=== PATIENT | male | born 1955 | race Caucasian/White ===

== ENCOUNTER 2017-02-09 12:04 | Inpatient (IN) | payer MEDICAID ==
[2017-02-09 12:41] VITALS: BMI 35.9
--- NOTE | 2017-02-09 13:22 | C.PDOC ---
History Of Present Illness 61 year old male with a Hx of asthma who presents to the ER with a complaint of SOB and cough with clear sputum for the past 5 days. Patient states it feels like prior asthma exacerbation; he reports having nebulizer treatments at home and notes he is not on steroid treatments. Denies fever, chills, or chest pain. Time Seen by Provider: 02/09/17 13:01 Chief Complaint (Nursing): Shortness Of Breath Associated Symptoms: Sweating, Productive Cough. denies: Fever, Chest Pain Recent travel outside of the [place]: No Past Medical History Reviewed: Historical Data, Nursing Documentation, Vital Signs Vital Signs: Last Vital Signs Temp 97.6 F 02/10/17 17:09 Pulse 100 H 02/10/17 17:09 Resp 20 02/10/17 17:09 BP 111/71 02/10/17 17:09 Pulse Ox 93 L 02/10/17 17:09 - Medical History PMH: Anxiety, Asthma, Benign Prostatic Hyperplasia, Bipolar Disorder, COPD, Depression, Diabetes, HTN, Hyperlipidemia, Schizophrenia Surgical History: [place] [facility] ASSISTANCE WITH RESPIRATORY VENTILATION, 24-96 HRS, CPAP (08/18/15) INSERTION OF ENDOTRACHEAL AIRWAY INTO TRACHEA, VIA OPENING (08/18/15) RESPIRATORY VENTILATION, 24-96 CONSECUTIVE HOURS (08/18/15) Family History: States: Unknown Family Hx - Social History Hx Tobacco Use: Yes Hx Alcohol Use: No Hx Substance Use: No - Immunization History Hx Tetanus Toxoid Vaccination: No Hx Influenza Vaccination: Yes Hx Pneumococcal Vaccination: No Review Of Systems Constitutional: Positive for: Sweats. Negative for: Fever Cardiovascular: Negative for: Chest Pain, Palpitations Respiratory: Positive for: Cough, Shortness of Breath, Sputum Gastrointestinal: Negative for: Nausea, Vomiting, Abdominal Pain Genitourinary: Negative for: Dysuria Physical Exam - Physical Exam Appears: Non-toxic Skin: Normal Color, Warm, Dry Head: Atraumatic, Normacephalic Oral Mucosa: Moist Neck: Normal, Supple Chest: Symmetrical, No Tenderness Cardiovascular: Rhythm Regular, No Murmur Respiratory: No Rales, No Rhonchi, Wheezing (Diffuse, Bilaterally) Gastrointestinal/Abdominal: Soft, No Tenderness Neurological/Psych: Oriented x3, Normal Speech, Normal Cognition ED Course And Treatment - Laboratory Results Result Diagrams: 02/10/17 07:27 02/10/17 07:27 O2 Sat by Pulse Oximetry: 91 (Room air) Medical Decision Making Medical Decision Making: Blood work, EKG, and CXR ordered. Duoneb and solumedrol administered. EKG: NSR 86 bpm Disposition - Disposition Disposition: HOSPITALIZED Disposition Time: 15:49 Condition: STABLE - Clinical Impression Clinical Impression: COPD with acute lower respiratory infection - Scribe Statement The provider has reviewed the documentation as recorded by the Scribmira De Leon All medical record entries made by the Ricardoibmira were at my direction and personally dictated by me. I have reviewed the chart and agree that the record accurately reflects my personal performance of the history, physical exam, medical decision making, and the department course for this patient. I have also personally directed, reviewed, and agree with the discharge instructions and disposition.
[2017-02-09] MEDS ORDERED: Albuterol-Ipratrop 3 mg / 0.5 (3 ml) UD IH SCH (13:30)
[2017-02-09] MEDS ORDERED: Albuterol-Ipratrop 3 mg / 0.5 (3 ml) UD ONE ×2 (13:44→15:32)
[2017-02-09 13:56] LABS: BASO # 0.1 K/uL (0.0-0.2); BASO % 0.5 % (0.0-2.0); EOS # 0.3 K/uL (0.0-0.7); EOS % 1.7 % (0.0-4.0); LYMPH # 0.8 K/uL (1.0-4.3); LYMPH % 4.6 % (20.0-40.0); MEAN CELL VOLUME 78.5 fL (80.0-94.0); MEAN CORPUSCULAR HEMOGLOBIN 25.9 pg (27.0-31.0); MEAN PLATELET VOLUME 8.1 fL (7.2-11.7); MONO # 0.6 K/uL (0.0-0.8); MONO % 3.6 % (0.0-10.0); NEUT # 15.7 K/uL (1.8-7.0); NEUT % 89.6 % (50.0-75.0); PLATELET COUNT 304 K/uL (130-400); RBC 5.42 Mil/uL (4.40-5.90); RED CELL DISTRIBUTION WIDTH 13.7 % (11.5-14.5); WHITE BLOOD COUNT 17.5 K/uL (4.8-10.8)
[2017-02-09 14:17] LABS: ALBUMIN 3.7 g/dL (3.5-5.0)
[2017-02-09 14:19] LABS: GFR AFRICAN-AMERICAN > 60; GFR NON-AFRICAN AMERICAN > 60
[2017-02-09 14:20] LABS: ALT/SGPT 47 U/L (21-72); AST/SGOT 46 U/L (17-59); BLOOD UREA NITROGEN 8 mg/dL (9-20); CALCIUM 8.8 mg/dl (8.6-10.4)
[2017-02-09 14:29] LABS: B-TYPE NATRIURETIC PEPTIDE 65.8 pg/mL (0-900)
[2017-02-09] MEDS ORDERED: Moxifloxacin IV 400mg/250ml NS 400 MG/250 ML BAG IVPB ONE ×2 (14:29→14:56)
--- NOTE | 2017-02-09 14:29 | RAD ---
HISTORY: cough sob COMPARISON: 08/06/2016 FINDINGS: LUNGS: No focal consolidation. Peribronchial thickening and patchy bilateral opacities. Nonspecific. Consider infectious etiology. . PLEURA: Calcified pleural plaque at left lateral lung base unchanged from prior. CARDIOVASCULAR: Normal. OSSEOUS STRUCTURES: No significant abnormalities. VISUALIZED UPPER ABDOMEN: Normal. OTHER FINDINGS: None. IMPRESSION: Peribronchial thickening and patchy bilateral pulmonary opacities common nonspecific. This may reflect an infectious etiology.
[2017-02-09 14:50] LABS: EOSINOPHIL 1 % (0-4); LYMPHOCYTE 5 % (20-40); MONOCYTE 5 % (0-10); NEUTROPHIL 89 % (50-75); PLATELET ESTIMATE NORMAL (NORMAL); TOTAL CELLS COUNTED 100
[2017-02-09 14:50] LABS: ABG ALLEN TEST PO; ARTERIAL BLOOD GAS HCO3 25.8 mmol/L (21-28); ARTERIAL BLOOD GAS O2 SAT 92.2 % (95-98); ARTERIAL BLOOD GAS PCO2 39 mm/Hg (35-45); ARTERIAL BLOOD GAS PH 7.43 (7.35-7.45); ARTERIAL BLOOD GAS PO2 52 mm/Hg (80-100); ARTERIAL BLOOD GAS TCO2 27.1 mmol/L (22-28)
[2017-02-09 14:54] LABS: URINE BILIRUBIN NEGATIVE (NEGATIVE); URINE BLOOD NEGATIVE (NEGATIVE); URINE CLARITY Clear (Clear); URINE COLOR Yellow (YELLOW); URINE GLUCOSE (UA) NORMAL (Normal); URINE LEUKOCYTE ESTERASE NEG Leu/uL (Negative); URINE NITRATE NEGATIVE (NEGATIVE); URINE PROTEIN NEGATIVE (NEGATIVE); URINE UROBILINOGEN NORMAL mg/dL (0.2-1.0)
[2017-02-09] MEDS ORDERED: Albuterol-Ipratrop 3 mg / 0.5 (3 ml) UD INH PRN (18:15)
--- NOTE | 2017-02-09 18:28 | CP.PCM.HP ---
<Amanda Meade - Last Filed: 02/09/17 18:19> History of Present Illness - History of Present Illness History of Present Illness: CC: SOB 61 year old male with past medical history of asthma, DM, HTN, schizophrenia presents to hospital for cough and shortness of breath ongoing for about 5 days. Patient states that he has productive cough with whitish sputum for 5 days. This morning, patient went to PMD, Dr. Eyal Molina's office and was given Medrol and told to go to ED. Patient states he has been using his inhalers at home without much relief. Patient denies having any fevers, chills. He does c/ o of B/L chest pain worse with coughing ongoing for about 4 days. Patient was found to have WBC count of 17.5 in ED. However, patient was afebrile and had stable VS. Patient was admitted to hospital 6 months ago for similar symptoms. At that time, patient had CT chest which showed patchy nonspecific ground glass opacities. At this time, patient is not c/o SOB, chest pain, abd pain, N/ V. 12 point ROS are negative except for the above mentioned. PMHx: stated above Allergies: NKDA PMHx: as above PSHx: hernia repair 2014, testicular sx Family Hx: unknown Social Hx: smokes 7-8 cigs/ day x 40 years, denies ETOH and illicit drug use, lives with , on disability Present on Admission - Present on Admission Any Indicators Present on Admission: No History of DVT/PE: No Past Patient History - Infectious Disease Hx of Infectious Diseases: None - Past Medical History & Family History Past Medical History?: Yes - Past Social History Smoking Status: Current Some Days Smoker Chewing Tobacco Use: No Cigar Use: No Alcohol: None Drugs: Denies Home Situation {Lives}: With Family - CARDIAC Hx Hypertension: Yes - PULMONARY Hx Asthma: Yes Hx Chronic Obstructive Pulmonary Disease (COPD): Yes - NEUROLOGICAL Hx Seizures: No - HEENT Hx HEENT Problems: No - RENAL Hx Chronic Kidney Disease: No - ENDOCRINE/METABOLIC Hx Endocrine Disorders: Yes Hx Diabetes Mellitus Type 2: Yes - HEMATOLOGICAL/ONCOLOGICAL Hx Human Immunodeficiency Virus (HIV): No - INTEGUMENTARY Hx Dermatological Problems: No - MUSCULOSKELETAL/RHEUMATOLOGICAL Hx Falls: No - GASTROINTESTINAL Hx Gastrointestinal Disorders: No - GENITOURINARY/GYNECOLOGICAL Hx Sexually Transmitted Disorders: No - PSYCHIATRIC Hx Anxiety: Yes Hx Bipolar Disorder: Yes Hx Depression: Yes Hx Schizophrenia: Yes Hx Substance Use: No - SURGICAL HISTORY Hx Appendectomy: Yes Hx Cholecystectomy: Yes - ANESTHESIA Hx Anesthesia: Yes Hx Anesthesia Reactions: No Hx Malignant Hyperthermia: No Meds Allergies/Adverse Reactions: Allergies Allergy/AdvReac Type Severity Reaction Status Date / Time No Known Allergies Allergy Verified 02/09/17 12:40 Physical Exam - Constitutional Appears: Non-toxic, No Acute Distress - Head Exam Head Exam: ATRAUMATIC - Eye Exam Eye Exam: EOMI Pupil Exam: PERRL - ENT Exam ENT Exam: Mucous Membranes Moist - Respiratory Exam Respiratory Exam: Decreased Breath Sounds, Wheezes. absent: Accessory Muscle Use, Rales, Rhonchi, Respiratory Distress - Cardiovascular Exam Cardiovascular Exam: REGULAR RHYTHM, +S1, +S2. absent: Diastolic murmur, Gallop , Rubs, Systolic Murmur - GI/Abdominal Exam GI & Abdominal Exam: Normal Bowel Sounds, Soft. absent: Distended, Firm, Guarding, Rebound, Rigid, Tenderness - Extremities Exam Extremities exam: Negative for: pedal edema, tenderness - Neurological Exam Neurological exam: Alert, Oriented x3 - Psychiatric Exam Psychiatric exam: Normal Affect, Normal Mood - Skin Skin Exam: Dry, Intact, Normal Color, Warm Results - Vital Signs Recent Vital Signs: Last Vital Signs Temp 97.9 F 02/09/17 18:07 Pulse 92 H 02/09/17 18:07 Resp 28 H 02/09/17 18:07 BP 112/72 02/09/17 18:07 Pulse Ox 96 02/09/17 18:07 - Labs Result Diagrams: 02/09/17 13:51 02/09/17 13:51 Assessment & Plan - Assessment and Plan (Free Text) Assessment: 61 year old male with past medical history of asthma, HTN, DM, schizophrenia is admitted for SOB and cough likely due to PNA vs. bronchitis. In ED, patient is found to have WBC count of 17.5. On admission, patient had stable vital signs. CXR on admission showed peribronchial thickening and patchy B/L pulmonary opacities. Patient is also found to have Na of 125. PNA vs. bronchitis - Will do CT chest without contrast - Patient received Avelox in ED. Will continue Avelox - Will check procalcitonin - Duoneb q3 prn, q6 yonathan - Solumedrol 40 mg IV q8 - Advair, Spiriva - NC 2 L to maintain O2 >90% Chest pain R/O ACS - Will check serial trops and EKG -Inital EKG showed no ST changes - Will start Aspirin 81 mg po qd Hyponatremia likely due to malnutrition - Will check urine and serum osmolality, Urine Na - NS 100 cc - Will repeat BMP at 12 am HTN - Patient has stable BP in ED - Will continue to monitor DM - Will continue home medications: Lopid, glucotrol, metformin, januvia - Accuchecks ACHS - ISS medium dose - Will check Hgb A1c - Will check lipid panel. Will wait to start a statin therapy after lipid panel is checked Tobacco abuse - Discussed risks of substance abuse and recommended cessation - Nicotin patch Prophylaxis - Protonix - Lovenox, SCDs Case discussed with attending, Dr. Fountain - Date & Time Date: 02/09/17 Time: 18:29 <Johan Fountain - Last Filed: 02/10/17 09:46> Results - Vital Signs Recent Vital Signs: Last Vital Signs Temp 98.2 F 02/10/17 00:25 Pulse 89 02/10/17 00:25 Resp 20 02/10/17 00:25 BP 105/68 02/10/17 00:25 Pulse Ox 92 L 02/10/17 00:25 - Labs Result Diagrams: 02/10/17 07:27 02/10/17 07:27 Labs: Laboratory Results - last 24 hr 02/09/17 02/10/17 02/10/17 18:45 01:18 06:49 WBC RBC Hgb Hct MCV MCH MCHC RDW Plt Count MPV Neut % (Auto) Lymph % (Auto) [place] % (Auto) Eos % (Auto) Baso % (Auto) Neut # Lymph # [place] # Eos # Baso # Neutrophils % (Manual) Band Neutrophils % Lymphocytes % (Manual) Monocytes % (Manual) Platelet Estimate RBC Morphology Sodium 129 L Potassium 3.9 Chloride 90 L Carbon Dioxide 26 Anion Gap 16 BUN 14 Creatinine 0.6 L Est GFR ( Amer) > 60 Est GFR (Non-Af Amer) > 60 POC Glucose (mg/dL) 130 H Random Glucose 180 H Hemoglobin A1c Calcium 8.5 L Total Bilirubin AST ALT Alkaline Phosphatase Troponin I < 0.0120 < 0.0120 Total Protein Albumin Globulin Albumin/Globulin Ratio Triglycerides Cholesterol LDL Cholesterol Direct HDL Cholesterol 02/10/17 02/10/17 02/10/17 07:27 07:27 07:27 WBC 22.5 H RBC 5.27 Hgb 13.6 Hct 41.7 MCV 79.0 L MCH 25.8 L MCHC 32.6 L RDW 13.5 Plt Count 320 MPV 8.4 Neut % (Auto) 81.3 H Lymph % (Auto) 7.5 L [place] % (Auto) 10.3 H Eos % (Auto) 0.8 Baso % (Auto) 0.1 Neut # 18.3 H Lymph # 1.7 [place] # 2.3 H Eos # 0.2 Baso # 0.0 Neutrophils % (Manual) 81 H Band Neutrophils % 1 Lymphocytes % (Manual) 10 L Monocytes % (Manual) 8 Platelet Estimate Normal RBC Morphology Normal Sodium 133 Potassium 4.3 Chloride 93 L Carbon Dioxide 28 Anion Gap 16 BUN 15 Creatinine 0.6 L Est GFR ( Amer) > 60 Est GFR (Non-Af Amer) > 60 POC Glucose (mg/dL) Random Glucose 135 H Hemoglobin A1c 8.7 H Calcium 9.1 Total Bilirubin 0.6 AST 43 ALT 52 Alkaline Phosphatase 63 Troponin I Total Protein 7.3 Albumin 3.6 Globulin 3.7 Albumin/Globulin Ratio 1.0 Triglycerides 61 D Cholesterol 122 LDL Cholesterol Direct 73 HDL Cholesterol 32 Attending/Attestation - Attestation I have personally seen and examined this patient.: Yes I have fully participated in the care of the patient.: Yes I have reviewed all pertinent clinical information: Yes Notes (Text): Medical attending: Patient was seen and examined by me, agrees the above note by medical doctor nuclear medicine. We will be getting a CAT scan of the lung to assess for potential pneumonia or infiltrates or consolidations. The patient was here in August 2016, and at that time he had a very ground glass opacities like appearance. We'll start the patient on IV Solu-Medrol, as he does have some wheezing on exam and wondering if this could be emphysema or fibrosis of lung that's complicated with infection - we will monitor blood and sputum cultures. Patient will also need to have inhalers as well including duo nebs, Spiriva, and the Solu-Medrol as discussed above Thank you very much, Johan Fountain
--- NOTE | 2017-02-09 19:36 | CT ---
EXAM: CT Chest Without Intravenous Contrast CLINICAL HISTORY: 61 years old, male; Condition or disease; Lung condition and disease; Copd and pneumonia; Other: SOB; Additional info: Shortness of breath TECHNIQUE: Axial computed tomography images of the chest without intravenous contrast. This CT exam was performed using one or more of the following dose reduction techniques: automated exposure control, adjustment of the mA and/or kV according to patient size, and/or use of iterative reconstruction technique. Coronal and sagittal reformatted images were created and reviewed. EXAM DATE/TIME: 02/09/2017 6:15 PM COMPARISON: CT - CHEST W/CONTRAST 08/20/2015 4:49:18 PM FINDINGS: Artifacts: Motion artifact degrades image quality. Lungs and Pleural space: Trachea and main bronchi are patent. There patchy airspace opacities greatest in the upper lobes and right middle lobe. There is less extensive patchy airspace disease in the lower lobes. There is a partially calcified pleural plaque on the left. There are no effusions. There is minimal pleural thickening at the right base. Heart and vasculature: Heart size is at the upper limits of normal. There are coronary calcifications. Aorta and main pulmonary artery are normal in caliber.There are vascular calcifications. Mediastinum: There are multiple mildly prominent mediastinal nodes.Nubia are not optimally evaluated without contrast material. There calcified subcarinal nodes. Thyroid: Thyroid is not optimally demonstrated. Bones/joints: There are degenerative changes in the osseus structures. Soft tissues: unremarkable Upper abdomen: Gallbladder is absent. Common bile duct is prominent. There is a 2.2 cm left adrenal nodule IMPRESSION: Limited by patient motion, bilateral airspace disease; shotty mediastinal adenopathy, infectious/inflammatory versus neoplastic; atherosclerotic disease with coronary artery calcifications; calcified pleural plaque; indeterminate left adrenal nodule Additional findings as described above.
[2017-02-09 19:41] LABS: OSMOLALITY,URINE 215 mosm/kg (300-1000)
[2017-02-09] MEDS: Sodium Chloride 0.9% 1,000 ML IV SCH (20:04)
[2017-02-09] MEDS: (Novolin R) Insulin Human Regular 100 units/ml vial SC SCH (22:00)
[2017-02-10 01:32] LABS: GFR AFRICAN-AMERICAN > 60; GFR NON-AFRICAN AMERICAN > 60
[2017-02-10 01:33] LABS: BLOOD UREA NITROGEN 14 mg/dL (9-20); CALCIUM 8.5 mg/dl (8.6-10.4)
[2017-02-10] MEDS: Fluticasone-Salmeterol 250-50mcg Diskus INH SCH ×2 (07:35→19:59)
[2017-02-10] MEDS: Tiotropium 18 mcg Cap For Inhalation INH SCH (07:36)
[2017-02-10] MEDS: Albuterol-Ipratrop 3 mg / 0.5 (3 ml) UD INH SCH ×3 (07:36→19:59)
[2017-02-10 07:39] LABS: BASO % 0.1 % (0.0-2.0); EOS # 0.2 K/uL (0.0-0.7); EOS % 0.8 % (0.0-4.0); HEMOGLOBIN 13.6 g/dL (12.0-18.0); LYMPH # 1.7 K/uL (1.0-4.3); LYMPH % 7.5 % (20.0-40.0); MEAN CORPUSCULAR HEMOGLOBIN 25.8 pg (27.0-31.0); MEAN CORPUSCULAR HGB CONC 32.6 g/dL (33.0-37.0); MEAN PLATELET VOLUME 8.4 fL (7.2-11.7); MONO # 2.3 K/uL (0.0-0.8); MONO % 10.3 % (0.0-10.0); NEUT # 18.3 K/uL (1.8-7.0); NEUT % 81.3 % (50.0-75.0); PLATELET COUNT 320 K/uL (130-400); RBC 5.27 Mil/uL (4.40-5.90); RED CELL DISTRIBUTION WIDTH 13.5 % (11.5-14.5); WHITE BLOOD COUNT 22.5 K/uL (4.8-10.8)
[2017-02-10 07:57] LABS: ALBUMIN 3.6 g/dL (3.5-5.0)
[2017-02-10 08:00] LABS: AST/SGOT 43 U/L (17-59); BLOOD UREA NITROGEN 15 mg/dL (9-20); GFR AFRICAN-AMERICAN > 60; GFR NON-AFRICAN AMERICAN > 60
[2017-02-10 08:01] LABS: ALT/SGPT 52 U/L (21-72); CALCIUM 9.1 mg/dl (8.6-10.4); HDL CHOLESTEROL 32 mg/dL (30-70)
[2017-02-10 08:12] LABS: LDL CHOLESTEROL 73 mg/dL (0-129)
[2017-02-10] MEDS: (Novolin R) Insulin Human Regular 100 units/ml vial SC SCH ×4 (08:14→22:10)
[2017-02-10 08:43] LABS: BANDS 1 % (0-2); LYMPHOCYTE 10 % (20-40); MONOCYTE 8 % (0-10); NEUTROPHIL 81 % (50-75); PLATELET ESTIMATE NORMAL (NORMAL); TOTAL CELLS COUNTED 100
[2017-02-10] MEDS ORDERED: Moxifloxacin IV 400mg/250ml NS 400 MG/250 ML BAG IVPB ONE (10:00)
[2017-02-10] MEDS ORDERED: MethylPREDNISolone 40 mg Vial IVP SCH (10:00)
[2017-02-10] MEDS: Pantoprazole 40 mg EC Tab PO SCH (11:20)
[2017-02-10] MEDS: Sodium Chloride 0.9% 1,000 ML IV SCH ×2 (11:20→22:15)
[2017-02-10] MEDS: Enoxaparin 30 mg Syringe SC SCH (11:21)
[2017-02-10] MEDS ORDERED: Bisacodyl 5mg EC Tab PO ONE (11:56)
--- NOTE | 2017-02-10 16:06 | CP.PCM.PN ---
<Cierra Jiménez E - Last Filed: 02/10/17 19:17> Subjective - Date & Time of Evaluation Date of Evaluation: 02/10/17 Time of Evaluation: 09:30 - Subjective Subjective: Medicine note (PGY 1) : Dr. Fountain's service Patient was seen and examined at bedside. Patient was sitting at the edge of his bed. Patient reports that his symptoms has improved but still experiences mild shortness of breath and cough. Patient denies chest pain, nausea, vomiting , fever, chills, headache and dizziness. Objective - Vital Signs/Intake and Output Vital Signs (last 24 hours): Temp Pulse Resp BP Pulse Ox 97.3 F L 80 20 106/67 95 02/10/17 09:52 02/10/17 09:52 02/10/17 09:52 02/10/17 09:52 02/10/17 09:52 - Medications Medications: Current Medications Acetaminophen (Tylenol 325mg Tab) 650 mg PO Q6 PRN PRN Reason: Fever >100.4 F Albuterol/Ipratropium (Duoneb 3 Mg/0.5 Mg (3 Ml) Ud) 3 ml INH RQ6 PADMINI Last Admin: 02/10/17 13:32 Dose: 3 ml Albuterol/Ipratropium (Duoneb 3 Mg/0.5 Mg (3 Ml) Ud) 3 ml INH RQ3 PRN PRN Reason: Shortness of Breath Aripiprazole (Abilify) 30 mg PO HS [facility] Aspirin (Ecotrin) 81 mg PO DAILY [facility] Last Admin: 02/10/17 11:21 Dose: 81 mg Benzonatate (Tessalon Perles) 100 mg PO TID [facility] Docusate Sodium (Colace) 100 mg PO BID [facility] Last Admin: 02/10/17 13:05 Dose: 100 mg Enoxaparin Sodium (Lovenox) 30 mg SC DAILY [facility] Last Admin: 02/10/17 11:21 Dose: 30 mg Gabapentin (Neurontin) 100 mg PO DAILY [facility] Last Admin: 02/10/17 11:20 Dose: 100 mg Gemfibrozil (Lopid) 600 mg PO BID [facility] Last Admin: 02/10/17 11:20 Dose: 600 mg Glipizide (Glucotrol) 10 mg PO DAILY [facility] Last Admin: 02/10/17 11:20 Dose: 10 mg Sodium Chloride (Sodium Chloride 0.9%) 1,000 mls @ 100 mls/hr IV .Q10H [facility] Last Admin: 02/10/17 11:20 Dose: 100 mls/hr Insulin Human Regular (Novolin R) 0 unit SC ACHS PAD[facility]I PRN Reason: Protocol Last Admin: 02/10/17 12:58 Dose: Not Given Loratadine (Claritin) 10 mg PO DAILY [facility] Last Admin: 02/10/17 11:21 Dose: 10 mg Metformin HCl (Glucophage) 1,000 mg PO BID [facility] Last Admin: 02/10/17 11:20 Dose: 1,000 mg Methylprednisolone (Solu-Medrol) 40 mg IVP Q8H [facility] Nicotine (Nicoderm Cq) 1 patch TD DAILY [facility] Last Admin: 02/10/17 11:23 Dose: Not Given Ondansetron HCl (Zofran Inj) 4 mg IVP Q6 PRN PRN Reason: Nausea/Vomiting Pantoprazole Sodium (Protonix Ec Tab) 40 mg PO DAILY [facility] Last Admin: 02/10/17 11:20 Dose: 40 mg Fluticasone/Salmeterol (Advair Diskus 250/50) 1 puff INH RQ12 [facility] Last Admin: 02/10/17 07:35 Dose: 1 puff Sertraline HCl (Zoloft) 50 mg PO BID [facility] Last Admin: 02/10/17 11:20 Dose: 50 mg Sitagliptin Phosphate (Januvia) 100 mg PO DAILY [facility] Last Admin: 02/10/17 11:20 Dose: 100 mg Tiotropium [place] (Spiriva) 18 mcg INH RQ24 [facility] Last Admin: 02/10/17 07:36 Dose: 18 mcg - Labs Labs: 02/10/17 07:27 02/10/17 07:27 - Constitutional Appears: No Acute Distress - Head Exam Head Exam: NORMAL INSPECTION, NORMOCEPHALIC - Eye Exam Eye Exam: EOMI, Normal appearance - ENT Exam ENT Exam: Mucous Membranes Moist, Normal Exam - Respiratory Exam Respiratory Exam: Wheezes, NORMAL BREATHING PATTERN - Cardiovascular Exam Cardiovascular Exam: Tachycardia, REGULAR RHYTHM, +S1, +S2 - GI/Abdominal Exam GI & Abdominal Exam: Soft, Normal Bowel Sounds - Extremities Exam Extremities Exam: Normal Capillary Refill, Normal Inspection. absent: Pedal Edema - Neurological Exam Neurological Exam: Alert, Awake, Oriented x3 - Psychiatric Exam Psychiatric exam: Normal Affect, Normal Mood - Skin Skin Exam: Dry, Normal Color, Warm Assessment and Plan (1) Shortness of breath Assessment & Plan: Secondary to pneumonia/bronchtitis or COPD exacerbation Afebrile WBC: 17.5 on admission----> 22.5(02/10/17) NeutrophilL 81.3% Procalcitonin: <0.05 Patient received Avelox in ED--> 400mg IV once Duonebs 3ml INH RQ3 PRN and Duonebs 3ml INH RQ6 PADMINI Benzonatate 100mg PO TID Loratadine 10mg PO daily Solu-Medrol 40mg IVP Q8H Advair 1 puff INH RQ12H Spiriva 18 mcg INH RQ24H 2L nasal cannula [employer] Inspector consult---Dr. Rutledge (Help appreciated): Regarding CT findings Chest X- ray (02/09/17) : Peribronchial thickening and patchy bilateral pulmonary opacities common nonspecific. This may reflect an infectious etiology. CT Chest (02/09/17): There patchy airspace opacities greatest in the upper lobes and right middle lobe. There is less extensive patchy airspace disease in the lower lobes. There is a partially calcified pleural plaque on the left. There are no effusions. There is minimal pleural thickening at the right base. There are vascular calcifications. * Mediastinum: There are multiple mildly prominent mediastinal nodes. * Nubia are not optimally evaluated without contrast material. There calcified subcarinal * There is a 2.2 cm left adrenal nodule * bilateral airspace disease; shotty mediastinal adenopathy, infectious/ inflammatory versus neoplastic; atherosclerotic disease with coronary artery calcifications; calcified pleural plaque; indeterminate left adrenal nodule Status: Acute (2) Chest pain Assessment & Plan: Resolved R/o ACS Troponin : Negative X 3 No EKG Changes Hgb1AC: 8.7 Aspirin 81 mg PO daily Status: Acute (3) Acute hyponatremia Assessment & Plan: Resolving Na+: 127 on admission---> 133 (02/10/17) Status: Acute (4) Diabetes mellitus Assessment & Plan: HgbA1c: 8.7 Lipid panel: * Trigly: 61 * Cholesterol: 122 * LDL: 73 * HDL: 32 Accuchecks ACHS ISS medium dose Continue to home medications: * Glipizide 10mg PO daily * Metformin 1000mg PO BID * Januvia 100mg PO daily * Lopid 600mg PO BID Status: Acute (5) Tobacco abuse Assessment & Plan: Nicotine Patch Discussed risks of substance abuse and recommended cessation Status: Acute (6) History of asthma Assessment & Plan: Duonebs 3ml INH RQ3 PRN and Duonebs 3ml INH RQ6 PADMINI Solu-Medrol 40mg IVP Q8H Advair 1 puff INH RQ12H Spiriva 18 mcg INH RQ24H 2L nasal cannula Status: Acute (7) History of depression Assessment & Plan: Continue home medication: * Zoloft 50mg PO BID Status: Acute (8) History of schizophrenia Assessment & Plan: Continue home medication: * Abilify 30mg PO HS Status: Acute (9) Prophylactic measure Assessment & Plan: SCD Protonix 40mg PO daily Lovenox 30mg SC daily Status: Acute <EssiePeter H - Last Filed: 02/11/17 08:04> Objective - Vital Signs/Intake and Output Vital Signs (last 24 hours): Temp Pulse Resp BP Pulse Ox 97.4 F L 93 H 20 103/64 95 02/10/17 23:35 02/10/17 23:35 02/10/17 23:35 02/10/17 23:35 02/10/17 23:35 - Medications Medications: Current Medications Acetaminophen (Tylenol 325mg Tab) 650 mg PO Q6 PRN PRN Reason: Fever >100.4 F Albuterol/Ipratropium (Duoneb 3 Mg/0.5 Mg (3 Ml) Ud) 3 ml INH RQ6 [facility] Last Admin: 02/11/17 01:29 Dose: 3 ml Albuterol/Ipratropium (Duoneb 3 Mg/0.5 Mg (3 Ml) Ud) 3 ml INH RQ3 PRN PRN Reason: Shortness of Breath Aripiprazole (Abilify) 30 mg PO HS [facility] Last Admin: 02/10/17 22:13 Dose: 30 mg Aspirin (Ecotrin) 81 mg PO DAILY [facility] Last Admin: 02/10/17 11:21 Dose: 81 mg Benzonatate (Tessalon Perles) 100 mg PO TID [facility] Last Admin: 02/10/17 19:22 Dose: 100 mg Docusate Sodium (Colace) 100 mg PO BID [facility] Last Admin: 02/10/17 18:25 Dose: 100 mg Enoxaparin Sodium (Lovenox) 30 mg SC DAILY [facility] Last Admin: 02/10/17 11:21 Dose: 30 mg Gabapentin (Neurontin) 100 mg PO DAILY [facility] Last Admin: 02/10/17 11:20 Dose: 100 mg Gemfibrozil (Lopid) 600 mg PO BID [facility] Last Admin: 02/10/17 18:25 Dose: 600 mg Glipizide (Glucotrol) 10 mg PO DAILY [facility] Last Admin: 02/10/17 11:20 Dose: 10 mg Sodium Chloride (Sodium Chloride 0.9%) 1,000 mls @ 100 mls/hr IV .Q10H [facility] Last Admin: 02/11/17 00:35 Dose: Not Given Insulin Human Regular (Novolin R) 0 unit SC ACHS [facility] PRN Reason: Protocol Last Admin: 02/10/17 22:10 Dose: Not Given Loratadine (Claritin) 10 mg PO DAILY [facility] Last Admin: 02/10/17 11:21 Dose: 10 mg Metformin HCl (Glucophage) 1,000 mg PO BID [facility] Last Admin: 02/10/17 18:25 Dose: 1,000 mg Methylprednisolone (Solu-Medrol) 40 mg IVP Q8H [facility] Last Admin: 02/11/17 03:20 Dose: 40 mg Nicotine (Nicoderm Cq) 1 patch TD DAILY [facility] Last Admin: 02/10/17 11:23 Dose: Not Given Ondansetron HCl (Zofran Inj) 4 mg IVP Q6 PRN PRN Reason: Nausea/Vomiting Pantoprazole Sodium (Protonix Ec Tab) 40 mg PO DAILY [facility] Last Admin: 02/10/17 11:20 Dose: 40 mg Fluticasone/Salmeterol (Advair Diskus 250/50) 1 puff INH RQ12 [facility] Last Admin: 02/10/17 19:59 Dose: 1 puff Sertraline HCl (Zoloft) 50 mg PO BID [facility] Last Admin: 02/10/17 18:25 Dose: 50 mg Sitagliptin Phosphate (Januvia) 100 mg PO DAILY [facility] Last Admin: 02/10/17 11:20 Dose: 100 mg Tiotropium [place] (Spiriva) 18 mcg INH RQ24 [facility] Last Admin: 02/10/17 07:36 Dose: 18 mcg - Labs Labs: 07/11/17 07:27 02/10/17 07:27 Attending/Attestation - Attestation I have personally seen and examined this patient.: Yes I have fully participated in the care of the patient.: Yes I have reviewed all pertinent clinical information, including history, physical exam and plan: Yes Notes (Text): Medical attending: Patient was seen and examined by me, agree with the above note by medical secretary teacher. When we saw and examined the patient he was sitting up out of bed, he stated to us that his breathing sammi only somewhat improved from before. He denied having any fevers or chills. However he pointed out to us that he still having a lot of coughing. His white blood cell count was 22 and this might be secondary from the IV Solu-Medrol and that we are giving him. Nevertheless we are giving him IV anti-biotics as he may have an underlying pneumonia or infection. This being said his pro-calcitonin and is very. His CAT scan of lung shows patchy airspace disease on particularly the right upper and right middle lobes. There is concern that possibly this could also represent some type of malignancy. The patient does still smoke despite everything that he's been throat. We'll try to get a pulmonology evaluation while he's here Thank you very much, Johan Fountain
--- NOTE | 2017-02-10 17:23 | CP.PCM.CON ---
History of Present Illness - History of Present Illness History of Present Illness: Reason for consultation: Shortness of breath 61 year old male with history of asthma, DM, HTN, schizophrenia presented to ER for cough and shortness of breath for past 5 days. Patient states that he has productive cough with whitish sputum for 5 days. Patient states he has been using his inhalers at home without much relief. Patient denies having any fevers, chills. He does c/o of B/L chest pain worse with coughing ongoing for about 4 days. PMHx: asthma, DM, HTN, schizophrenia Allergies: NKDA PMHx: as above PSHx: hernia repair 2013, testicular sx Family Hx: unknown Social Hx: smokes 7-8 cigs/ day x 40 years, denies ETOH and illicit drug use, lives with , on disability Review of Systems - Review of Systems All systems: reviewed and no additional remarkable complaints except (Shortness of breath) Past Patient History - Infectious Disease Hx of Infectious Diseases: None - Past Medical History & Family History Past Medical History?: Yes - Past Social History Smoking Status: Heavy Smoker > 10 Cigarettes Daily - CARDIAC Hx Hypertension: Yes - PULMONARY Hx Asthma: Yes Hx Chronic Obstructive Pulmonary Disease (COPD): Yes - NEUROLOGICAL Hx Seizures: No - HEENT Hx HEENT Problems: No - RENAL Hx Chronic Kidney Disease: No - ENDOCRINE/METABOLIC Hx Endocrine Disorders: Yes Hx Diabetes Mellitus Type 2: Yes - HEMATOLOGICAL/ONCOLOGICAL Hx Human Immunodeficiency Virus (HIV): No - INTEGUMENTARY Hx Dermatological Problems: No - MUSCULOSKELETAL/RHEUMATOLOGICAL Hx Falls: No - GASTROINTESTINAL Hx Gastrointestinal Disorders: No - GENITOURINARY/GYNECOLOGICAL Hx Sexually Transmitted Disorders: No - PSYCHIATRIC Hx Anxiety: Yes Hx Bipolar Disorder: Yes Hx Depression: Yes Hx Schizophrenia: Yes Hx Substance Use: No - SURGICAL HISTORY Hx Appendectomy: Yes Hx Cholecystectomy: Yes - ANESTHESIA Hx Anesthesia: Yes Hx Anesthesia Reactions: No Hx Malignant Hyperthermia: No Meds Allergies/Adverse Reactions: Allergies Allergy/AdvReac Type Severity Reaction Status Date / Time No Known Allergies Allergy Verified 02/09/17 12:40 - Medications Medications: Current Medications Acetaminophen (Tylenol 325mg Tab) 650 mg PO Q6 PRN PRN Reason: Fever >100.4 F Albuterol/Ipratropium (Duoneb 3 Mg/0.5 Mg (3 Ml) Ud) 3 ml INH RQ6 PADMINI Last Admin: 02/10/17 13:32 Dose: 3 ml Albuterol/Ipratropium (Duoneb 3 Mg/0.5 Mg (3 Ml) Ud) 3 ml INH RQ3 PRN PRN Reason: Shortness of Breath Aripiprazole (Abilify) 30 mg PO HS [facility] Aspirin (Ecotrin) 81 mg PO DAILY [facility] Last Admin: 02/10/17 11:21 Dose: 81 mg Benzonatate (Tessalon Perles) 100 mg PO TID [facility] Docusate Sodium (Colace) 100 mg PO BID [facility] Last Admin: 02/10/17 13:05 Dose: 100 mg Enoxaparin Sodium (Lovenox) 30 mg SC DAILY [facility] Last Admin: 02/10/17 11:21 Dose: 30 mg Gabapentin (Neurontin) 100 mg PO DAILY [facility] Last Admin: 02/10/17 11:20 Dose: 100 mg Gemfibrozil (Lopid) 600 mg PO BID [facility] Last Admin: 02/10/17 11:20 Dose: 600 mg Glipizide (Glucotrol) 10 mg PO DAILY [facility] Last Admin: 02/10/17 11:20 Dose: 10 mg Sodium Chloride (Sodium Chloride 0.9%) 1,000 mls @ 100 mls/hr IV .Q10H [facility] Last Admin: 02/10/17 11:20 Dose: 100 mls/hr Insulin Human Regular (Novolin R) 0 unit SC ACHS [facility] PRN Reason: Protocol Last Admin: 02/10/17 12:58 Dose: Not Given Loratadine (Claritin) 10 mg PO DAILY [facility] Last Admin: 02/10/17 11:21 Dose: 10 mg Metformin HCl (Glucophage) 1,000 mg PO BID [facility] Last Admin: 02/10/17 11:20 Dose: 1,000 mg Methylprednisolone (Solu-Medrol) 40 mg IVP Q8H [facility] Nicotine (Nicoderm Cq) 1 patch TD DAILY [facility] Last Admin: 02/10/17 11:23 Dose: Not Given Ondansetron HCl (Zofran Inj) 4 mg IVP Q6 PRN PRN Reason: Nausea/Vomiting Pantoprazole Sodium (Protonix Ec Tab) 40 mg PO DAILY [facility] Last Admin: 02/10/17 11:20 Dose: 40 mg Fluticasone/Salmeterol (Advair Diskus 250/50) 1 puff INH RQ12 [facility] Last Admin: 02/10/17 07:35 Dose: 1 puff Sertraline HCl (Zoloft) 50 mg PO BID [facility] Last Admin: 02/10/17 11:20 Dose: 50 mg Sitagliptin Phosphate (Januvia) 100 mg PO DAILY [facility] Last Admin: 02/10/17 11:20 Dose: 100 mg Tiotropium [place] (Spiriva) 18 mcg INH RQ24 [facility] Last Admin: 02/10/17 07:36 Dose: 18 mcg Physical Exam - Head Exam Head Exam: ATRAUMATIC, NORMOCEPHALIC - Eye Exam Eye Exam: Normal appearance - ENT Exam ENT Exam: Mucous Membranes Moist - Neck Exam Neck exam: Positive for: Normal Inspection - Respiratory Exam Respiratory Exam: Rhonchi - Cardiovascular Exam Cardiovascular Exam: REGULAR RHYTHM - GI/Abdominal Exam GI & Abdominal Exam: Normal Bowel Sounds, Soft - Extremities Exam Extremities exam: Positive for: pedal edema - Neurological Exam Neurological exam: Alert, Oriented x3 Results - Vital Signs Recent Vital Signs: Last Vital Signs Temp 97.6 F 02/10/17 17:09 Pulse 100 H 02/10/17 17:09 Resp 20 02/10/17 17:09 BP 111/71 02/10/17 17:09 Pulse Ox 93 L 02/10/17 17:09 - Labs Result Diagrams: 02/11/17 07:35 02/11/17 07:35 Labs: Laboratory Results - last 24 hr 02/09/17 02/10/17 02/10/17 18:45 01:18 06:49 WBC RBC Hgb Hct MCV MCH MCHC RDW Plt Count MPV Neut % (Auto) Lymph % (Auto) [place] % (Auto) Eos % (Auto) Baso % (Auto) Neut # Lymph # [place] # Eos # Baso # Neutrophils % (Manual) Band Neutrophils % Lymphocytes % (Manual) Monocytes % (Manual) Platelet Estimate RBC Morphology Sodium 129 L Potassium 3.9 Chloride 90 L Carbon Dioxide 26 Anion Gap 16 BUN 14 Creatinine 0.6 L Est GFR ( Amer) > 60 Est GFR (Non-Af Amer) > 60 POC Glucose (mg/dL) 130 H Random Glucose 180 H Hemoglobin A1c Calcium 8.5 L Total Bilirubin AST ALT Alkaline Phosphatase Troponin I < 0.0120 < 0.0120 Total Protein Albumin Globulin Albumin/Globulin Ratio Triglycerides Cholesterol LDL Cholesterol Direct HDL Cholesterol Procalcitonin 02/10/17 02/10/17 02/10/17 07:27 07:27 07:27 WBC RBC Hgb Hct MCV MCH MCHC RDW Plt Count MPV Neut % (Auto) Lymph % (Auto) [place] % (Auto) Eos % (Auto) Baso % (Auto) Neut # Lymph # [place] # Eos # Baso # Neutrophils % (Manual) Band Neutrophils % Lymphocytes % (Manual) Monocytes % (Manual) Platelet Estimate RBC Morphology Sodium 133 Potassium 4.3 Chloride 93 L Carbon Dioxide 28 Anion Gap 16 BUN 15 Creatinine 0.6 L Est GFR ( Amer) > 60 Est GFR (Non-Af Amer) > 60 POC Glucose (mg/dL) Random Glucose 135 H Hemoglobin A1c 8.7 H Calcium 9.1 Total Bilirubin 0.6 AST 43 ALT 52 Alkaline Phosphatase 63 Troponin I Total Protein 7.3 Albumin 3.6 Globulin 3.7 Albumin/Globulin Ratio 1.0 Triglycerides 61 D Cholesterol 122 LDL Cholesterol Direct 73 HDL Cholesterol 32 Procalcitonin < 0.05 L 02/10/17 02/10/17 02/10/17 07:27 10:38 12:05 WBC 22.5 H RBC 5.27 Hgb 13.6 Hct 41.7 MCV 79.0 L MCH 25.8 L MCHC 32.6 L RDW 13.5 Plt Count 320 MPV 8.4 Neut % (Auto) 81.3 H Lymph % (Auto) 7.5 L [place] % (Auto) 10.3 H Eos % (Auto) 0.8 Baso % (Auto) 0.1 Neut # 18.3 H Lymph # 1.7 [place] # 2.3 H Eos # 0.2 Baso # 0.0 Neutrophils % (Manual) 81 H Band Neutrophils % 1 Lymphocytes % (Manual) 10 L Monocytes % (Manual) 8 Platelet Estimate Normal RBC Morphology Normal Sodium Potassium Chloride Carbon Dioxide Anion Gap BUN Creatinine Est GFR ( Amer) Est GFR (Non-Af Amer) POC Glucose (mg/dL) 116 H Random Glucose Hemoglobin A1c Calcium Total Bilirubin AST ALT Alkaline Phosphatase Troponin I < 0.0120 Total Protein Albumin Globulin Albumin/Globulin Ratio Triglycerides Cholesterol LDL Cholesterol Direct HDL Cholesterol Procalcitonin Assessment & Plan (1) COPD with acute lower respiratory infection Status: Acute (2) Pneumonitis Status: Acute Comment: Patient was recently admitted at [facility] with similar complaints and had extensive workup done. SCARLET was weakly positive, with normal ESR. Echocardiogram done showed ejection fraction of 65%. Continue IV steroids. fiberoptic bronchoscopy with biopsy
[2017-02-10] MEDS: MethylPREDNISolone 40 mg Vial IVP SCH (18:52)
[2017-02-11] MEDS: Sodium Chloride 0.9% 1,000 ML IV SCH ×2 (00:35→21:10)
[2017-02-11] MEDS: Albuterol-Ipratrop 3 mg / 0.5 (3 ml) UD INH SCH ×5 (01:29→19:34)
[2017-02-11] MEDS: MethylPREDNISolone 40 mg Vial IVP SCH ×3 (03:20→21:07)
[2017-02-11] MEDS: Fluticasone-Salmeterol 250-50mcg Diskus INH SCH ×2 (07:10→19:34)
[2017-02-11] MEDS: Tiotropium 18 mcg Cap For Inhalation INH SCH (07:10)
[2017-02-11 07:50] LABS: BASO # 0.1 K/uL (0.0-0.2); BASO % 0.3 % (0.0-2.0); EOS % 0.2 % (0.0-4.0); HEMOGLOBIN 13.6 g/dL (12.0-18.0); LYMPH # 0.9 K/uL (1.0-4.3); LYMPH % 5.4 % (20.0-40.0); MEAN CELL VOLUME 79.5 fL (80.0-94.0); MEAN CORPUSCULAR HEMOGLOBIN 25.9 pg (27.0-31.0); MEAN CORPUSCULAR HGB CONC 32.6 g/dL (33.0-37.0); MEAN PLATELET VOLUME 8.4 fL (7.2-11.7); MONO # 0.8 K/uL (0.0-0.8); MONO % 4.7 % (0.0-10.0); NEUT # 14.9 K/uL (1.8-7.0); NEUT % 89.4 % (50.0-75.0); PLATELET COUNT 335 K/uL (130-400); RBC 5.26 Mil/uL (4.40-5.90); RED CELL DISTRIBUTION WIDTH 13.8 % (11.5-14.5); WHITE BLOOD COUNT 16.7 K/uL (4.8-10.8)
[2017-02-11 07:55] LABS: ALBUMIN 3.6 g/dL (3.5-5.0)
[2017-02-11 07:58] LABS: ALB/GLOB RATIO 0.9 (1.0-2.1); ALT/SGPT 52 U/L (21-72); AST/SGOT 45 U/L (17-59); BLOOD UREA NITROGEN 13 mg/dL (9-20); GFR AFRICAN-AMERICAN > 60; GFR NON-AFRICAN AMERICAN > 60
[2017-02-11 07:59] LABS: CALCIUM 9.3 mg/dl (8.6-10.4)
[2017-02-11 08:26] LABS: BANDS 1 % (0-2); LYMPHOCYTE 6 % (20-40); MONOCYTE 5 % (0-10); NEUTROPHIL 88 % (50-75); PLATELET ESTIMATE NORMAL (NORMAL); TOTAL CELLS COUNTED 100
[2017-02-11] MEDS ORDERED: Bisacodyl 5mg EC Tab PO ONE (09:45)
[2017-02-11] MEDS: (Novolin R) Insulin Human Regular 100 units/ml vial SC SCH ×3 (10:13→16:51)
[2017-02-11] MEDS: Pantoprazole 40 mg EC Tab PO SCH (10:13)
[2017-02-11] MEDS: Enoxaparin 30 mg Syringe SC SCH (10:13)
--- NOTE | 2017-02-11 14:05 | CARD ---
APPROVED REPORT EKG Measurement Heart [id number] <Conclusion> Normal sinus rhythm Normal ECG
--- NOTE | 2017-02-11 14:07 | CARD ---
APPROVED REPORT EKG Measurement Heart [id number] <Conclusion> Normal sinus rhythm Normal ECG
[2017-02-11] MEDS ORDERED: Propofol 10 mg/ml Inj (20 ML) ONE (17:53)
[2017-02-11] MEDS ORDERED: Midazolam 2 MG/2 ML VIAL ONE (17:53)
[2017-02-11] MEDS ORDERED: Phenylephrine 10 mg/ml Inj ONE (17:54)
[2017-02-11] MEDS ORDERED: EPINEPHrine 1 mg/ml (1:1000) Inj ONE (17:55)
[2017-02-11] MEDS ORDERED: Sodium Chloride 0.9% 20 ML IV ONE (17:55)
[2017-02-11] MEDS ORDERED: Lactated Ringer's 1,000 ML IV ONE (18:00)
[2017-02-11] MEDS: Lidocaine 2% Inj (20ml) ONE ×2 (18:11→18:22)
--- NOTE | 2017-02-11 18:42 | CP.PCM.PN ---
<TinoAshleyoj E - Last Filed: 02/11/17 20:06> Subjective - Date & Time of Evaluation Date of Evaluation: 02/11/17 Time of Evaluation: 07:40 - Subjective Subjective: Medicine Note ( PGY 1 ): Dr. Fountain's note Patient was seen and examined at bedside. Patient was sitting at the edge of his bed while receiving breathing treatment. Patient reports that he is feeling better and his shortness of breath is improving. Patient denies chest pain, nausea, vomiting, headache, dizziness, abdominal pain and diarrhea but admits to cough. Objective - Vital Signs/Intake and Output Vital Signs (last 24 hours): Temp Pulse Resp BP Pulse Ox 97.6 F 80 20 112/68 95 02/11/17 16:00 02/11/17 18:31 02/11/17 16:00 02/11/17 16:00 02/11/17 16:00 - Medications Medications: Current Medications Acetaminophen (Tylenol 325mg Tab) 650 mg PO Q6 PRN PRN Reason: Fever >100.4 F Albuterol/Ipratropium (Duoneb 3 Mg/0.5 Mg (3 Ml) Ud) 3 ml INH RQ6 [facility] Last Admin: 02/11/17 13:14 Dose: 3 ml Albuterol/Ipratropium (Duoneb 3 Mg/0.5 Mg (3 Ml) Ud) 3 ml INH RQ3 PRN PRN Reason: Shortness of Breath Aripiprazole (Abilify) 30 mg PO HS [facility] Last Admin: 02/10/17 22:13 Dose: 30 mg Aspirin (Ecotrin) 81 mg PO DAILY [facility] Last Admin: 02/11/17 10:12 Dose: Not Given Benzonatate (Tessalon Perles) 100 mg PO TID [facility] Last Admin: 02/11/17 18:27 Dose: Not Given Docusate Sodium (Colace) 100 mg PO BID [facility] Last Admin: 02/11/17 18:26 Dose: Not Given Enoxaparin Sodium (Lovenox) 30 mg SC DAILY [facility] Last Admin: 02/11/17 10:13 Dose: Not Given Gabapentin (Neurontin) 100 mg PO DAILY [facility] Last Admin: 02/11/17 10:13 Dose: Not Given Gemfibrozil (Lopid) 600 mg PO BID [facility] Last Admin: 02/11/17 18:26 Dose: Not Given Glipizide (Glucotrol) 10 mg PO DAILY [facility] Last Admin: 02/11/17 10:12 Dose: Not Given Sodium Chloride (Sodium Chloride 0.9%) 1,000 mls @ 100 mls/hr IV .Q10H [facility] Last Admin: 02/11/17 00:35 Dose: Not Given Insulin Human Regular (Novolin R) 0 unit SC ACHS [facility] PRN Reason: Protocol Last Admin: 02/11/17 16:51 Dose: Not Given Loratadine (Claritin) 10 mg PO DAILY [facility] Last Admin: 02/11/17 10:12 Dose: Not Given Metformin HCl (Glucophage) 1,000 mg PO BID [facility] Last Admin: 02/11/17 18:26 Dose: Not Given Methylprednisolone (Solu-Medrol) 40 mg IVP Q8H [facility] Last Admin: 02/11/17 11:13 Dose: 40 mg Nicotine (Nicoderm Cq) 1 patch TD DAILY [facility] Last Admin: 02/11/17 10:13 Dose: Not Given Ondansetron HCl (Zofran Inj) 4 mg IVP Q6 PRN PRN Reason: Nausea/Vomiting Pantoprazole Sodium (Protonix Ec Tab) 40 mg PO DAILY [facility] Last Admin: 02/11/17 10:13 Dose: Not Given Fluticasone/Salmeterol (Advair Diskus 250/50) 1 puff INH RQ12 [facility] Last Admin: 02/11/17 07:10 Dose: Not Given Sertraline HCl (Zoloft) 50 mg PO BID [facility] Last Admin: 02/11/17 18:27 Dose: Not Given Sitagliptin Phosphate (Januvia) 100 mg PO DAILY [facility] Last Admin: 02/11/17 10:12 Dose: Not Given Tiotropium [place] (Spiriva) 18 mcg INH RQ24 [facility] Last Admin: 02/11/17 07:10 Dose: 18 mcg - Labs Labs: 02/11/17 07:35 02/11/17 07:35 - Constitutional Appears: Well, No Acute Distress - Head Exam Head Exam: NORMAL INSPECTION, NORMOCEPHALIC - Eye Exam Eye Exam: EOMI, Normal appearance - ENT Exam ENT Exam: Mucous Membranes Moist, Normal Exam - Respiratory Exam Respiratory Exam: Clear to Ausculation Bilateral, NORMAL BREATHING PATTERN - Cardiovascular Exam Cardiovascular Exam: Tachycardia, REGULAR RHYTHM, +S1, +S2 - GI/Abdominal Exam GI & Abdominal Exam: Soft, Normal Bowel Sounds - Extremities Exam Extremities Exam: Full ROM, Normal Capillary Refill, Normal Inspection - Neurological Exam Neurological Exam: Alert, Awake, Oriented x3 - Psychiatric Exam Psychiatric exam: Normal Affect, Normal Mood - Skin Skin Exam: Dry, Normal Color, Warm Assessment and Plan (1) Shortness of breath Assessment & Plan: Resolving Secondary to pneumonia/bronchtitis or COPD exacerbation Afebrile WBC: 17.5 on admission----> 22.5(02/10/17)---> 16.7 (02/11/17) NeutrophilL 81.3% Procalcitonin: <0.05 Patient received Avelox in ED--> 400mg IV once Duonebs 3ml INH RQ3 PRN and Duonebs 3ml INH RQ6 [facility]AD[facility] Benzonatate 100mg PO TID Loratadine 10mg PO daily Solu-Medrol 40mg IVP Q8H Advair 1 puff INH RQ12H Spiriva 18 mcg INH RQ24H 2L nasal cannula Customer Care Coordinator consult---Dr. Rutledge (Help appreciated): Regarding CT findings Chest X- ray (02/09/17) : Peribronchial thickening and patchy bilateral pulmonary opacities common nonspecific. This may reflect an infectious etiology. CT Chest (02/09/17): There patchy airspace opacities greatest in the upper lobes and right middle lobe. There is less extensive patchy airspace disease in the lower lobes. There is a partially calcified pleural plaque on the left. There are no effusions. There is minimal pleural thickening at the right base. There are vascular calcifications. * Mediastinum: There are multiple mildly prominent mediastinal nodes. * Nubia are not optimally evaluated without contrast material. There calcified subcarinal * There is a 2.2 cm left adrenal nodule * bilateral airspace disease; shotty mediastinal adenopathy, infectious/ inflammatory versus neoplastic; atherosclerotic disease with coronary artery calcifications; calcified pleural plaque; indeterminate left adrenal nodule Fiberoptic bronchoscopy/brushing/biopsy and BAL (02/11/17) : F/U biopsy result of the right middle lobe Status: Acute (2) Chest pain Assessment & Plan: Resolved R/o ACS Troponin : Negative X 3 No EKG Changes Hgb1AC: 8.7 Aspirin 81 mg PO daily Status: Acute (3) Acute hyponatremia Assessment & Plan: Resolved Na+: 127 on admission---> 133 (02/10/17) Stable at NA+ : 133 Status: Acute (4) Diabetes mellitus Assessment & Plan: HgbA1c: 8.7 Lipid panel: * Trigly: 61 * Cholesterol: 122 * LDL: 73 * HDL: 32 Accuchecks ACHS ISS medium dose--adjusted to high risk protocol Continue to home medications: * Glipizide 10mg PO daily * Metformin 1000mg PO BID * Januvia 100mg PO daily * Lopid 600mg PO BID Status: Acute (5) Tobacco abuse Assessment & Plan: Nicotine Patch Discussed risks of substance abuse and recommended cessation Status: Acute (6) History of asthma Assessment & Plan: stable Duonebs 3ml INH RQ3 PRN and Duonebs 3ml INH RQ6 [facility]AD[facility] Solu-Medrol 40mg IVP Q8H Advair 1 puff INH RQ12H Spiriva 18 mcg INH RQ24H 2L nasal cannula Status: Acute (7) History of depression Assessment & Plan: Continue home medication: * Zoloft 50mg PO BID Status: Acute (8) History of schizophrenia Assessment & Plan: Continue home medication: * Abilify 30mg PO HS Status: Acute (9) Prophylactic measure Assessment & Plan: SCD Protonix 40mg PO daily Lovenox 30mg SC daily Status: Acute <Johan Fountain H - Last Filed: 02/12/17 07:40> Objective - Vital Signs/Intake and Output Vital Signs (last 24 hours): Temp Pulse Resp BP Pulse Ox 97.8 F 93 H 20 121/77 96 02/11/17 23:20 02/11/17 23:35 02/11/17 23:20 02/11/17 23:20 02/11/17 23:20 - Medications Medications: Current Medications Acetaminophen (Tylenol 325mg Tab) 650 mg PO Q6 PRN PRN Reason: Fever >100.4 F Albuterol/Ipratropium (Duoneb 3 Mg/0.5 Mg (3 Ml) Ud) 3 ml INH RQ6 [facility] Last Admin: 02/12/17 02:09 Dose: 3 ml Albuterol/Ipratropium (Duoneb 3 Mg/0.5 Mg (3 Ml) Ud) 3 ml INH RQ3 PRN PRN Reason: Shortness of Breath Aripiprazole (Abilify) 30 mg PO HS [facility] Last Admin: 02/10/17 22:13 Dose: 30 mg Aspirin (Ecotrin) 81 mg PO DAILY [facility] Last Admin: 02/11/17 10:12 Dose: Not Given Benzonatate (Tessalon Perles) 100 mg PO TID [facility] Last Admin: 02/11/17 18:27 Dose: Not Given Docusate Sodium (Colace) 100 mg PO BID [facility] Last Admin: 02/11/17 18:26 Dose: Not Given Enoxaparin Sodium (Lovenox) 30 mg SC DAILY [facility] Last Admin: 02/11/17 10:13 Dose: Not Given Gabapentin (Neurontin) 100 mg PO DAILY [facility] Last Admin: 02/11/17 10:13 Dose: Not Given Gemfibrozil (Lopid) 600 mg PO BID [facility] Last Admin: 02/11/17 18:26 Dose: Not Given Glipizide (Glucotrol) 10 mg PO DAILY [facility] Last Admin: 02/11/17 10:12 Dose: Not Given Sodium Chloride (Sodium Chloride 0.9%) 1,000 mls @ 100 mls/hr IV .Q10H [facility] Last Admin: 02/12/17 05:24 Dose: 100 mls/hr Insulin Human Regular (Novolin R) 0 unit SC ACHS [facility] PRN Reason: Protocol Last Admin: 02/11/17 16:51 Dose: Not Given Loratadine (Claritin) 10 mg PO DAILY [facility] Last Admin: 02/11/17 10:12 Dose: Not Given Metformin HCl (Glucophage) 1,000 mg PO BID [facility] Last Admin: 02/11/17 18:26 Dose: Not Given Methylprednisolone (Solu-Medrol) 40 mg IVP Q8H [facility] Last Admin: 02/12/17 03:25 Dose: 40 mg Nicotine (Nicoderm Cq) 1 patch TD DAILY [facility] Last Admin: 02/11/17 10:13 Dose: Not Given Ondansetron HCl (Zofran Inj) 4 mg IVP Q6 PRN PRN Reason: Nausea/Vomiting Pantoprazole Sodium (Protonix Ec Tab) 40 mg PO DAILY [facility] Last Admin: 02/11/17 10:13 Dose: Not Given Fluticasone/Salmeterol (Advair Diskus 250/50) 1 puff INH RQ12 [facility] Last Admin: 02/11/17 19:34 Dose: Not Given Sertraline HCl (Zoloft) 50 mg PO BID [facility] Last Admin: 02/11/17 18:27 Dose: Not Given Sitagliptin Phosphate (Januvia) 100 mg PO DAILY [facility] Last Admin: 02/11/17 10:12 Dose: Not Given Tiotropium [place] (Spiriva) 18 mcg INH RQ24 [facility] Last Admin: 02/11/17 07:10 Dose: 18 mcg - Labs Labs: 02/11/17 07:35 02/11/17 07:35 Attending/Attestation - Attestation I have personally seen and examined this patient.: Yes I have fully participated in the care of the patient.: Yes I have reviewed all pertinent clinical information, including history, physical exam and plan: Yes Notes (Text): Medical attending: Patient was seen and examined by me. Agree with the above note by the resident. The patient reports the breathing was tolerable now. Later he will undergo bronchoscopy for more information reguarding the CT scan of the lungs findings. In the mean time he remains on IV abx as well as solumedrol thank you Johan Fountain
--- NOTE | 2017-02-11 19:03 | PCM.OP ---
Operative Report - Operative Report Date of Surgery/Procedure: 02/11/17 Time of Surgery/Procedure: 18:00 Surgeon: mohsen Anesthesia/Sedation: sedation Pre-Operative Diagnosis: Bilateral lung infiltrate Post-Operative Diagnosis: Bilateral lung infiltrate Procedure/Operation Description: Fiberoptic bronchoscopy/brushing/biopsy and BAL. Fiberoptic bronchoscopy procedure was done after obtaining consent from patient through spanish interpreter/translator explaining risks and benefits. Patient was intubated by anesthesiologist and bronchoscope was passed to ET tube into the trachea. copious secretions noted on both sides which were suctioned out, BAL, brushing and biopsy was done right middle lobe, small amount of bleeding noted which stopped after epine Estimated Blood Loss: 5-10ml Complications: none
[2017-02-12] MEDS: Albuterol-Ipratrop 3 mg / 0.5 (3 ml) UD INH SCH ×4 (02:09→19:16)
[2017-02-12] MEDS: MethylPREDNISolone 40 mg Vial IVP SCH ×2 (03:25→12:56)
[2017-02-12] MEDS: Sodium Chloride 0.9% 1,000 ML IV SCH ×2 (05:24→16:24)
[2017-02-12 07:39] LABS: BASO % 0.1 % (0.0-2.0); EOS % 0.2 % (0.0-4.0); HEMOGLOBIN 13.6 g/dL (12.0-18.0); LYMPH # 1.4 K/uL (1.0-4.3); LYMPH % 9.3 % (20.0-40.0); MEAN CELL VOLUME 79.4 fL (80.0-94.0); MEAN CORPUSCULAR HEMOGLOBIN 26.2 pg (27.0-31.0); MEAN PLATELET VOLUME 8.1 fL (7.2-11.7); MONO # 1.3 K/uL (0.0-0.8); MONO % 8.4 % (0.0-10.0); NEUT # 12.6 K/uL (1.8-7.0); PLATELET COUNT 398 K/uL (130-400); RBC 5.18 Mil/uL (4.40-5.90); WHITE BLOOD COUNT 15.4 K/uL (4.8-10.8)
[2017-02-12 07:52] LABS: ALBUMIN 3.6 g/dL (3.5-5.0)
[2017-02-12] MEDS: Tiotropium 18 mcg Cap For Inhalation INH SCH (07:53)
[2017-02-12] MEDS: Fluticasone-Salmeterol 250-50mcg Diskus INH SCH ×2 (07:53→19:16)
[2017-02-12 07:54] LABS: GFR AFRICAN-AMERICAN > 60; GFR NON-AFRICAN AMERICAN > 60
[2017-02-12 07:55] LABS: ALT/SGPT 67 U/L (21-72); AST/SGOT 49 U/L (17-59); BLOOD UREA NITROGEN 16 mg/dL (9-20)
[2017-02-12 08:55] LABS: BANDS 1 % (0-2); EOSINOPHIL 1 % (0-4); LYMPHOCYTE 5 % (20-40); MONOCYTE 8 % (0-10); NEUTROPHIL 85 % (50-75); PLATELET ESTIMATE NORMAL (NORMAL); TOTAL CELLS COUNTED 100
[2017-02-12] MEDS: (Novolin R) Insulin Human Regular 100 units/ml vial SC SCH ×4 (09:08→21:31)
[2017-02-12] MEDS: Pantoprazole 40 mg EC Tab PO SCH (09:11)
[2017-02-12] MEDS: Enoxaparin 30 mg Syringe SC SCH (09:11)
--- NOTE | 2017-02-12 09:49 | RAD ---
HISTORY: post bronch COMPARISON: 02/09/2017 FINDINGS: LUNGS: Diffuse confluent airspace consolidative changes throughout both lungs suggestive for edema and or infiltrate. Biapical pleural thickening with upper lobe granulomatous changes. Blunted bilateral costophrenic angles may represent pleural thickening and or trace effusions. Lobulated pleural thickening at the lateral aspect of the left lower lobe. PLEURA: As above. CARDIOVASCULAR: Cardiomegaly. OSSEOUS STRUCTURES: Degenerative changes in the spine and shoulders. VISUALIZED UPPER ABDOMEN: Normal. OTHER FINDINGS: None. IMPRESSION: Diffuse confluent airspace consolidative changes throughout both lungs suggestive for edema and or infiltrate. Biapical pleural thickening with upper lobe granulomatous changes. Blunted bilateral costophrenic angles may represent pleural thickening and or trace effusions. Lobulated pleural thickening at the lateral aspect of the left lower lobe.
--- NOTE | 2017-02-12 10:06 | RAD ---
PROCEDURE: HISTORY: Fluoroscopy for bronchoscopy. Pneumonia/COPD COMPARISON: TECHNIQUE: Total fluoroscopic time utilized during the procedure: 26.8 seconds. Total dose 0.13634 mGy cm squared FINDINGS: Submitted images from the current procedure: Please refer to the physician's notes performing the procedure. IMPRESSION: Less than 1 hour fluoroscopic time utilized during performance of the procedure
--- NOTE | 2017-02-12 11:31 | CP.PCM.PN ---
Subjective - Date & Time of Evaluation Date of Evaluation: 02/12/17 Time of Evaluation: 09:00 - Subjective Subjective: patient seen and examined. complaining of productive cough with blood-tinged sputum Status post bronchoscopy with biopsy and brushing Still complaining of dyspnea on exertion Afebrile Awaiting for pathology report Continue nebulizer treatment IV steroids Objective - Vital Signs/Intake and Output Vital Signs (last 24 hours): Temp Pulse Resp BP Pulse Ox 97.4 F L 74 22 135/86 94 L 02/12/17 07:00 02/12/17 07:00 02/12/17 07:00 02/12/17 07:00 02/12/17 07:00 - Medications Medications: Current Medications Acetaminophen (Tylenol 325mg Tab) 650 mg PO Q6 PRN PRN Reason: Fever >100.4 F Albuterol/Ipratropium (Duoneb 3 Mg/0.5 Mg (3 Ml) Ud) 3 ml INH RQ6 [facility] Last Admin: 02/12/17 07:53 Dose: 3 ml Albuterol/Ipratropium (Duoneb 3 Mg/0.5 Mg (3 Ml) Ud) 3 ml INH RQ3 PRN PRN Reason: Shortness of Breath Aripiprazole (Abilify) 30 mg PO HS [facility] Last Admin: 02/10/17 22:13 Dose: 30 mg Aspirin (Ecotrin) 81 mg PO DAILY [facility] Last Admin: 02/12/17 09:10 Dose: 81 mg Benzonatate (Tessalon Perles) 100 mg PO TID [facility] Last Admin: 02/12/17 09:11 Dose: 100 mg Docusate Sodium (Colace) 100 mg PO BID [facility] Last Admin: 02/12/17 09:10 Dose: 100 mg Enoxaparin Sodium (Lovenox) 30 mg SC DAILY [facility] Last Admin: 02/12/17 09:11 Dose: 30 mg Gabapentin (Neurontin) 100 mg PO DAILY [facility] Last Admin: 02/12/17 09:10 Dose: 100 mg Gemfibrozil (Lopid) 600 mg PO BID [facility] Last Admin: 02/12/17 09:10 Dose: 600 mg Glipizide (Glucotrol) 10 mg PO DAILY [facility] Last Admin: 02/12/17 09:11 Dose: 10 mg Sodium Chloride (Sodium Chloride 0.9%) 1,000 mls @ 100 mls/hr IV .Q10H [facility] Last Admin: 02/12/17 05:24 Dose: 100 mls/hr Insulin Human Regular (Novolin R) 0 unit SC ACHS [facility] PRN Reason: Protocol Last Admin: 02/12/17 09:08 Dose: 6 unit Loratadine (Claritin) 10 mg PO DAILY [facility] Last Admin: 02/12/17 09:10 Dose: 10 mg Metformin HCl (Glucophage) 1,000 mg PO BID [facility] Last Admin: 02/12/17 09:10 Dose: 1,000 mg Methylprednisolone (Solu-Medrol) 40 mg IVP Q8H [facility] Last Admin: 02/12/17 03:25 Dose: 40 mg Nicotine (Nicoderm Cq) 1 patch TD DAILY [facility] Last Admin: 02/12/17 09:12 Dose: Not Given Ondansetron HCl (Zofran Inj) 4 mg IVP Q6 PRN PRN Reason: Nausea/Vomiting Pantoprazole Sodium (Protonix Ec Tab) 40 mg PO DAILY [facility] Last Admin: 02/12/17 09:11 Dose: 40 mg Fluticasone/Salmeterol (Advair Diskus 250/50) 1 puff INH RQ12 [facility] Last Admin: 02/12/17 07:53 Dose: 1 puff Sertraline HCl (Zoloft) 50 mg PO BID [facility] Last Admin: 02/12/17 09:11 Dose: 50 mg Sitagliptin Phosphate (Januvia) 100 mg PO DAILY [facility] Last Admin: 02/12/17 09:10 Dose: 100 mg Tiotropium [place] (Spiriva) 18 mcg INH RQ24 [facility] Last Admin: 02/12/17 07:53 Dose: 18 mcg - Labs Labs: 02/12/17 07:24 02/12/17 07:24 Assessment and Plan (1) COPD with acute lower respiratory infection Status: Acute (2) Pneumonitis Status: Acute
--- NOTE | 2017-02-12 13:19 | CP.PCM.PN ---
<OhlmanAshley salazaroj E - Last Filed: 02/12/17 19:12> Subjective - Date & Time of Evaluation Date of Evaluation: 02/12/17 Time of Evaluation: 07:50 - Subjective Subjective: Medicine note (PGY 1) : Dr. Fountain's service Patient was seen and examined at bedside. Patient reports that he is 75% better. Patient denies chest pain, fever, chills, nausea, vomiting but patient still reports mild sob and cough. Patient is tolerating diet and ambulating. Objective - Vital Signs/Intake and Output Vital Signs (last 24 hours): Temp Pulse Resp BP Pulse Ox 97.4 F L 74 22 135/86 94 L 02/12/17 07:00 02/12/17 07:00 02/12/17 07:00 02/12/17 07:00 02/12/17 07:00 - Medications Medications: Current Medications Acetaminophen (Tylenol 325mg Tab) 650 mg PO Q6 PRN PRN Reason: Fever >100.4 F Albuterol/Ipratropium (Duoneb 3 Mg/0.5 Mg (3 Ml) Ud) 3 ml INH RQ6 [facility] Last Admin: 02/12/17 13:04 Dose: 3 ml Albuterol/Ipratropium (Duoneb 3 Mg/0.5 Mg (3 Ml) Ud) 3 ml INH RQ3 PRN PRN Reason: Shortness of Breath Aripiprazole (Abilify) 30 mg PO HS [facility] Last Admin: 02/10/17 22:13 Dose: 30 mg Aspirin (Ecotrin) 81 mg PO DAILY [facility] Last Admin: 02/12/17 09:10 Dose: 81 mg Benzonatate (Tessalon Perles) 100 mg PO TID [facility] Last Admin: 02/12/17 13:01 Dose: 100 mg Docusate Sodium (Colace) 100 mg PO BID [facility] Last Admin: 02/12/17 09:10 Dose: 100 mg Enoxaparin Sodium (Lovenox) 30 mg SC DAILY [facility] Last Admin: 02/12/17 09:11 Dose: 30 mg Gabapentin (Neurontin) 100 mg PO DAILY [facility] Last Admin: 02/12/17 09:10 Dose: 100 mg Gemfibrozil (Lopid) 600 mg PO BID [facility] Last Admin: 02/12/17 09:10 Dose: 600 mg Glipizide (Glucotrol) 10 mg PO DAILY [facility] Last Admin: 02/12/17 09:11 Dose: 10 mg Sodium Chloride (Sodium Chloride 0.9%) 1,000 mls @ 100 mls/hr IV .Q10H [facility] Last Admin: 02/12/17 05:24 Dose: 100 mls/hr Insulin Human Regular (Novolin R) 0 unit SC ACHS [facility] PRN Reason: Protocol Last Admin: 02/12/17 12:57 Dose: 8 unit Loratadine (Claritin) 10 mg PO DAILY [facility] Last Admin: 02/12/17 09:10 Dose: 10 mg Metformin HCl (Glucophage) 1,000 mg PO BID [facility] Last Admin: 02/12/17 09:10 Dose: 1,000 mg Methylprednisolone (Solu-Medrol) 40 mg IVP Q12H [facility] Last Admin: 02/12/17 12:56 Dose: 40 mg Nicotine (Nicoderm Cq) 1 patch TD DAILY [facility] Last Admin: 02/12/17 09:12 Dose: Not Given Ondansetron HCl (Zofran Inj) 4 mg IVP Q6 PRN PRN Reason: Nausea/Vomiting Pantoprazole Sodium (Protonix Ec Tab) 40 mg PO DAILY [facility] Last Admin: 02/12/17 09:11 Dose: 40 mg Fluticasone/Salmeterol (Advair Diskus 250/50) 1 puff INH RQ12 [facility] Last Admin: 02/12/17 07:53 Dose: 1 puff Sertraline HCl (Zoloft) 50 mg PO BID [facility] Last Admin: 02/12/17 09:11 Dose: 50 mg Sitagliptin Phosphate (Januvia) 100 mg PO DAILY [facility] Last Admin: 02/12/17 09:10 Dose: 100 mg Tiotropium [place] (Spiriva) 18 mcg INH RQ24 [facility] Last Admin: 02/12/17 07:53 Dose: 18 mcg - Labs Labs: 02/12/17 07:24 02/12/17 07:24 - Constitutional Appears: Well, No Acute Distress - Head Exam Head Exam: NORMAL INSPECTION, NORMOCEPHALIC - Eye Exam Eye Exam: EOMI, Normal appearance - ENT Exam ENT Exam: Mucous Membranes Moist, Normal Exam - Respiratory Exam Respiratory Exam: NORMAL BREATHING PATTERN Additional comments: Congested - Cardiovascular Exam Cardiovascular Exam: Tachycardia, REGULAR RHYTHM, +S1, +S2 - GI/Abdominal Exam GI & Abdominal Exam: Soft, Normal Bowel Sounds - Extremities Exam Extremities Exam: Normal Capillary Refill, Normal Inspection - Neurological Exam Neurological Exam: Alert, Awake, Oriented x3 - Psychiatric Exam Psychiatric exam: Normal Affect, Normal Mood - Skin Skin Exam: Dry, Normal Color, Warm Assessment and Plan (1) Shortness of breath Assessment & Plan: Stable Secondary to pneumonia/bronchtitis or COPD exacerbation Afebrile WBC: 17.5 on admission----> 22.5(02/10/17)---> 16.7 (02/11/17)---> 15.4 (02/12/17) Neutrophil: 81.3% Procalcitonin: <0.05 Blood culture: No growth Sputum culture gram stain: Normal oral shreyas Patient received Avelox in ED--> 400mg IV once---> Started Avelox 400mg IV Q24H (02/12/17) Duonebs 3ml INH RQ3 PRN and Duonebs 3ml INH RQ6 [facility] Benzonatate 100mg PO TID Loratadine 10mg PO daily Solu-Medrol 40mg IVP Q8H ---- > adjusted to Q12H ( 02/12/17) Advair 1 puff INH RQ12H Spiriva 18 mcg INH RQ24H 2L nasal cannula Esthetician Makeup Artist consult---Dr. Rutledge (Help appreciated): Regarding CT findings Chest X- ray (02/09/17) : Peribronchial thickening and patchy bilateral pulmonary opacities common nonspecific. This may reflect an infectious etiology. Repeat Chest x-ray (02/11/17): Diffuse confluent airspace consolidative changes throughout both lungs suggestive for edema and or infiltrate. Biapical pleural thickening with upper lobe granulomatous changes. Blunted bilateral costophrenic angles may represent pleural thickening and or trace effusions. Lobulated pleural thickening at the lateral aspect of the left lower lobe. CT Chest (02/09/17): There patchy airspace opacities greatest in the upper lobes and right middle lobe. There is less extensive patchy airspace disease in the lower lobes. There is a partially calcified pleural plaque on the left. There are no effusions. There is minimal pleural thickening at the right base. There are vascular calcifications. * Mediastinum: There are multiple mildly prominent mediastinal nodes. * Nubia are not optimally evaluated without contrast material. There calcified subcarinal * There is a 2.2 cm left adrenal nodule * bilateral airspace disease; shotty mediastinal adenopathy, infectious/ inflammatory versus neoplastic; atherosclerotic disease with coronary artery calcifications; calcified pleural plaque; indeterminate left adrenal nodule Fiberoptic bronchoscopy/brushing/biopsy and BAL (02/11/17) : F/U biopsy result of the right middle lobe Status: Acute (2) Chest pain Assessment & Plan: Resolved R/o ACS Troponin : Negative X 3 No EKG Changes Hgb1AC: 8.7 Aspirin 81 mg PO daily Status: Acute (3) Acute hyponatremia Assessment & Plan: Resolved Na+: 127 on admission---> 133 (02/10/17) Stable at NA+ : 133 Status: Acute (4) Diabetes mellitus Assessment & Plan: HgbA1c: 8.7 Lipid panel: * Trigly: 61 * Cholesterol: 122 * LDL: 73 * HDL: 32 Accuchecks ACHS ISS medium dose--adjusted to high risk protocol (02/11/17) Continue to home medications: * Glipizide 10mg PO daily * Metformin 1000mg PO BID * Januvia 100mg PO daily * Lopid 600mg PO BID Status: Acute (5) Tobacco abuse Assessment & Plan: Nicotine Patch Discussed risks of substance abuse and recommended cessation Status: Acute (6) History of asthma Assessment & Plan: stable Duonebs 3ml INH RQ3 PRN and Duonebs 3ml INH RQ6 [facility] Solu-Medrol 40mg IVP Q8H---> adjusted to Q12H (02/12/17) Advair 1 puff INH RQ12H Spiriva 18 mcg INH RQ24H 2L nasal cannula Status: Acute (7) History of depression Assessment & Plan: Continue home medication: * Zoloft 50mg PO BID Status: Acute (8) History of schizophrenia Assessment & Plan: Continue home medication: * Abilify 30mg PO HS Status: Acute (9) Prophylactic measure Assessment & Plan: Ambulating Protonix 40mg PO daily Lovenox 30mg SC daily Status: Acute <Fountain,Peter H - Last Filed: 02/13/17 08:56> Objective - Vital Signs/Intake and Output Vital Signs (last 24 hours): Temp Pulse Resp BP Pulse Ox 97.8 F 99 H 21 133/79 93 L 02/13/17 07:52 02/13/17 08:00 02/13/17 07:52 02/13/17 07:52 02/13/17 07:52 Intake and Output: 02/13/17 02/13/17 06:59 18:59 Intake Total 970 Output Total 360 Balance 610 - Medications Medications: Current Medications Acetaminophen (Tylenol 325mg Tab) 650 mg PO Q6 PRN PRN Reason: Fever >100.4 F Albuterol/Ipratropium (Duoneb 3 Mg/0.5 Mg (3 Ml) Ud) 3 ml INH RQ6 [facility] Last Admin: 02/13/17 08:30 Dose: 3 ml Albuterol/Ipratropium (Duoneb 3 Mg/0.5 Mg (3 Ml) Ud) 3 ml INH RQ3 PRN PRN Reason: Shortness of Breath Aripiprazole (Abilify) 30 mg PO HS [facility] Last Admin: 02/12/17 21:29 Dose: 30 mg Aspirin (Ecotrin) 81 mg PO DAILY [facility] Last Admin: 02/12/17 09:10 Dose: 81 mg Benzocaine/Menthol (Cepacol Sore Throat) 1 narendra MT Q2 PRN PRN Reason: Sore Throat Last Admin: 02/12/17 21:26 Dose: 1 narendra Benzonatate (Tessalon Perles) 100 mg PO TID [facility] Last Admin: 02/12/17 17:21 Dose: 100 mg Docusate Sodium (Colace) 100 mg PO BID [facility] Last Admin: 02/12/17 17:21 Dose: 100 mg Enoxaparin Sodium (Lovenox) 30 mg SC DAILY [facility] Last Admin: 02/12/17 09:11 Dose: 30 mg Gabapentin (Neurontin) 100 mg PO DAILY [facility] Last Admin: 02/12/17 09:10 Dose: 100 mg Gemfibrozil (Lopid) 600 mg PO BID [facility] Last Admin: 02/12/17 17:21 Dose: 600 mg Glipizide (Glucotrol) 10 mg PO DAILY [facility] Last Admin: 02/12/17 09:11 Dose: 10 mg Sodium Chloride (Sodium Chloride 0.9%) 1,000 mls @ 100 mls/hr IV .Q10H [facility] Last Admin: 02/13/17 05:29 Dose: 100 mls/hr Moxifloxacin HCl (Avelox Iv 400mg/250ml Ns) 400 mg in 250 mls @ 167 mls/hr IVPB Q24H [facility] Last Admin: 02/12/17 21:26 Dose: 167 mls/hr Insulin Human Regular (Novolin R) 0 unit SC ACHS [facility] PRN Reason: Protocol Last Admin: 02/12/17 21:31 Dose: Not Given Loratadine (Claritin) 10 mg PO DAILY [facility] Last Admin: 02/12/17 09:10 Dose: 10 mg Metformin HCl (Glucophage) 1,000 mg PO BID [facility] Last Admin: 02/12/17 17:21 Dose: 1,000 mg Methylprednisolone (Solu-Medrol) 40 mg IVP Q12H [facility] Last Admin: 02/13/17 00:30 Dose: 40 mg Nicotine (Nicoderm Cq) 1 patch TD DAILY [facility] Last Admin: 02/12/17 09:12 Dose: Not Given Ondansetron HCl (Zofran Inj) 4 mg IVP Q6 PRN PRN Reason: Nausea/Vomiting Pantoprazole Sodium (Protonix Ec Tab) 40 mg PO DAILY [facility] Last Admin: 02/12/17 09:11 Dose: 40 mg Fluticasone/Salmeterol (Advair Diskus 250/50) 1 puff INH RQ12 [facility] Last Admin: 02/13/17 08:32 Dose: 1 puff Sertraline HCl (Zoloft) 50 mg PO BID [facility] Last Admin: 02/12/17 17:21 Dose: 50 mg Sitagliptin Phosphate (Januvia) 100 mg PO DAILY [facility] Last Admin: 02/12/17 09:10 Dose: 100 mg Tiotropium [place] (Spiriva) 18 mcg INH RQ24 [facility] Last Admin: 02/13/17 08:33 Dose: 18 mcg - Labs Labs: 02/13/17 08:23 02/13/17 08:23 Attending/Attestation - Attestation I have personally seen and examined this patient.: Yes I have fully participated in the care of the patient.: Yes I have reviewed all pertinent clinical information, including history, physical exam and plan: Yes Notes (Text): 02/13/17 08:54 Medical attending: Patient was seen and examined by me, agrees the above note by medical records coder. When we asked the patient how his breathing was he felt that he was "75% better" he reports that he still having the cough however it's been decreased from before. He is sitting up out of bed. As mentioned above he had just completed a bronchoscopy of which were waiting on the biopsy reports. He remains on IV Avelox at this time, he is on Solu-Medrol 3 times a day reported decrease that to just twice a day His white blood cell count is decreasing. He is also afebrile as well He denied chest pain denied palpitations denied abdominal pain, denied fever, tolerating diet well, denied having any bathroom problems such as constipation or difficulty urinating thank you Johan Fountain
[2017-02-12] MEDS ORDERED: Benzocaine/Menthol (Cepacol) Lozenge MT PRN (20:00)
[2017-02-12] MEDS: Moxifloxacin IV 400mg/250ml NS 400 MG/250 ML BAG IVPB SCH (21:26)
[2017-02-13] MEDS: MethylPREDNISolone 40 mg Vial IVP SCH ×4 (00:30→21:36)
[2017-02-13] MEDS: Sodium Chloride 0.9% 1,000 ML IV SCH ×3 (02:00→12:09)
[2017-02-13] MEDS: Albuterol-Ipratrop 3 mg / 0.5 (3 ml) UD INH SCH ×4 (02:14→19:03)
[2017-02-13 08:30] LABS: BASO % 0.2 % (0.0-2.0); EOS # 0.1 K/uL (0.0-0.7); EOS % 0.4 % (0.0-4.0); HEMOGLOBIN 13.8 g/dL (12.0-18.0); LYMPH # 1.9 K/uL (1.0-4.3); LYMPH % 13.2 % (20.0-40.0); MEAN CELL VOLUME 78.7 fL (80.0-94.0); MEAN CORPUSCULAR HEMOGLOBIN 25.8 pg (27.0-31.0); MEAN CORPUSCULAR HGB CONC 32.8 g/dL (33.0-37.0); MEAN PLATELET VOLUME 7.8 fL (7.2-11.7); MONO # 1.4 K/uL (0.0-0.8); MONO % 9.7 % (0.0-10.0); NEUT # 10.7 K/uL (1.8-7.0); NEUT % 76.5 % (50.0-75.0); RBC 5.33 Mil/uL (4.40-5.90); RED CELL DISTRIBUTION WIDTH 13.8 % (11.5-14.5)
[2017-02-13] MEDS: Fluticasone-Salmeterol 250-50mcg Diskus INH SCH ×2 (08:32→19:03)
[2017-02-13] MEDS: Tiotropium 18 mcg Cap For Inhalation INH SCH (08:33)
[2017-02-13 08:48] LABS: ALBUMIN 3.6 g/dL (3.5-5.0)
[2017-02-13 08:51] LABS: AST/SGOT 44 U/L (17-59); GFR AFRICAN-AMERICAN > 60; GFR NON-AFRICAN AMERICAN > 60
[2017-02-13 08:52] LABS: ALT/SGPT 73 U/L (21-72); BLOOD UREA NITROGEN 12 mg/dL (9-20); CALCIUM 9.4 mg/dl (8.6-10.4); MAGNESIUM 1.9 mg/dL (1.6-2.3)
[2017-02-13] MEDS: (Novolin R) Insulin Human Regular 100 units/ml vial SC SCH ×4 (09:18→21:34)
[2017-02-13] MEDS: Enoxaparin 30 mg Syringe SC SCH (09:19)
[2017-02-13] MEDS: Pantoprazole 40 mg EC Tab PO SCH (09:19)
--- NOTE | 2017-02-13 09:46 | CP.PCM.PN ---
<Fernanda Florez - Last Filed: 02/13/17 14:29> Subjective - Date & Time of Evaluation Date of Evaluation: 02/13/17 Time of Evaluation: 09:46 - Subjective Subjective: Medicine Progress Note- Dr. Fountain's Service Patient was seen and examined at bedside in no acute distress. Patient was pleasant and walking around his room. Patient reports having a nonproductive cough that his improved. He reports having a cough with sputum and a little blood yesterday. Patient has pain with coughing after having his endscopic procedure yesterday. He also states he has mild pain in his legs. Patient denies chest pain, abdominal pain, headaches, dizziness, diarrhea, and constipation. Objective - Vital Signs/Intake and Output Vital Signs (last 24 hours): Temp Pulse Resp BP Pulse Ox 97.8 F 99 H 21 133/79 93 L 02/13/17 07:52 02/13/17 08:00 02/13/17 07:52 02/13/17 07:52 02/13/17 07:52 Intake and Output: 02/13/17 02/13/17 06:59 18:59 Intake Total 970 Output Total 360 Balance 610 - Medications Medications: Current Medications Acetaminophen (Tylenol 325mg Tab) 650 mg PO Q6 PRN PRN Reason: Fever >100.4 F Albuterol/Ipratropium (Duoneb 3 Mg/0.5 Mg (3 Ml) Ud) 3 ml INH RQ6 [facility] Last Admin: 02/13/17 08:30 Dose: 3 ml Albuterol/Ipratropium (Duoneb 3 Mg/0.5 Mg (3 Ml) Ud) 3 ml INH RQ3 PRN PRN Reason: Shortness of Breath Aripiprazole (Abilify) 30 mg PO HS [facility] Last Admin: 02/12/17 21:29 Dose: 30 mg Aspirin (Ecotrin) 81 mg PO DAILY [facility] Last Admin: 02/13/17 09:19 Dose: 81 mg Benzocaine/Menthol (Cepacol Sore Throat) 1 narendra MT Q2 PRN PRN Reason: Sore Throat Last Admin: 02/12/17 21:26 Dose: 1 narendra Benzonatate (Tessalon Perles) 100 mg PO TID [facility] Last Admin: 02/13/17 09:19 Dose: 100 mg Docusate Sodium (Colace) 100 mg PO BID [facility] Last Admin: 02/13/17 09:19 Dose: 100 mg Enoxaparin Sodium (Lovenox) 30 mg SC DAILY [facility] Last Admin: 02/13/17 09:19 Dose: 30 mg Gabapentin (Neurontin) 100 mg PO DAILY [facility] Last Admin: 02/13/17 09:19 Dose: 100 mg Gemfibrozil (Lopid) 600 mg PO BID [facility] Last Admin: 02/13/17 09:19 Dose: 600 mg Glipizide (Glucotrol) 10 mg PO DAILY [facility] Last Admin: 02/13/17 09:19 Dose: 10 mg Sodium Chloride (Sodium Chloride 0.9%) 1,000 mls @ 100 mls/hr IV .Q10H [facility] Last Admin: 02/13/17 05:29 Dose: 100 mls/hr Moxifloxacin HCl (Avelox Iv 400mg/250ml Ns) 400 mg in 250 mls @ 167 mls/hr IVPB Q24H [facility] Last Admin: 02/12/17 21:26 Dose: 167 mls/hr Insulin Human Regular (Novolin R) 0 unit SC ACHS [facility] PRN Reason: Protocol Last Admin: 02/13/17 09:18 Dose: 8 unit Loratadine (Claritin) 10 mg PO DAILY [facility] Last Admin: 02/13/17 09:19 Dose: 10 mg Metformin HCl (Glucophage) 1,000 mg PO BID [facility] Last Admin: 02/13/17 09:19 Dose: 1,000 mg Methylprednisolone (Solu-Medrol) 40 mg IVP Q12H [facility] Last Admin: 02/13/17 00:30 Dose: 40 mg Nicotine (Nicoderm Cq) 1 patch TD DAILY [facility] Last Admin: 02/12/17 09:12 Dose: Not Given Ondansetron HCl (Zofran Inj) 4 mg IVP Q6 PRN PRN Reason: Nausea/Vomiting Pantoprazole Sodium (Protonix Ec Tab) 40 mg PO DAILY [facility] Last Admin: 02/13/17 09:19 Dose: 40 mg Fluticasone/Salmeterol (Advair Diskus 250/50) 1 puff INH RQ12 [facility] Last Admin: 02/13/17 08:32 Dose: 1 puff Sertraline HCl (Zoloft) 50 mg PO BID [facility] Last Admin: 02/13/17 09:19 Dose: 50 mg Sitagliptin Phosphate (Januvia) 100 mg PO DAILY [facility] Last Admin: 02/13/17 09:19 Dose: 100 mg Tiotropium [place] (Spiriva) 18 mcg INH RQ24 [facility] Last Admin: 02/13/17 08:33 Dose: 18 mcg - Labs Labs: 02/13/17 08:23 02/13/17 08:23 - Constitutional Appears: No Acute Distress - Head Exam Head Exam: NORMAL INSPECTION, NORMOCEPHALIC - Eye Exam Eye Exam: EOMI, Normal appearance - Neck Exam Neck Exam: Normal Inspection - Respiratory Exam Respiratory Exam: Clear to Ausculation Bilateral, NORMAL BREATHING PATTERN. absent: Rhonchi, Wheezes - Cardiovascular Exam Cardiovascular Exam: REGULAR RHYTHM, +S1, +S2 - GI/Abdominal Exam GI & Abdominal Exam: Distended, Firm, Normal Bowel Sounds. absent: Soft, Tenderness - Extremities Exam Extremities Exam: Normal Inspection, Pedal Edema (right ankle). absent: Tenderness - Neurological Exam Neurological Exam: Alert, Awake - Psychiatric Exam Psychiatric exam: Normal Affect, Normal Mood - Skin Skin Exam: Dry, Intact, Normal Color, Warm Assessment and Plan (1) Shortness of breath Assessment & Plan: Stable Secondary to pneumonia/bronchtitis or COPD exacerbation Afebrile WBC: 17.5 on admission----> 22.5(02/10/17)---> 16.7 (02/11/17)---> 15.4 (02/12/17) Neutrophil: 81.3% Procalcitonin: <0.05 Blood culture: No growth Sputum culture gram stain: Normal oral shreyas Patient received Avelox in ED--> 400mg IV once---> Started Avelox 400mg IV Q24H (02/12/17) Duonebs 3ml INH RQ3 PRN and Duonebs 3ml INH RQ6 [facility] Benzonatate 100mg PO TID Loratadine 10mg PO daily Decreased Solu-Medrol 40mg IVP Q12H ---- > to 20mg IV Q12H Advair 1 puff INH RQ12H Spiriva 18 mcg INH RQ24H 2L nasal cannula Heavy Equipment Rental Manager consult---Dr. Rutledge (Help appreciated): Regarding CT findings Chest X- ray (02/09/17) : Peribronchial thickening and patchy bilateral pulmonary opacities common nonspecific. This may reflect an infectious etiology. Repeat Chest x-ray (02/11/17): Diffuse confluent airspace consolidative changes throughout both lungs suggestive for edema and or infiltrate. Biapical pleural thickening with upper lobe granulomatous changes. Blunted bilateral costophrenic angles may represent pleural thickening and or trace effusions. Lobulated pleural thickening at the lateral aspect of the left lower lobe. CT Chest (02/09/17): There patchy airspace opacities greatest in the upper lobes and right middle lobe. There is less extensive patchy airspace disease in the lower lobes. There is a partially calcified pleural plaque on the left. There are no effusions. There is minimal pleural thickening at the right base. There are vascular calcifications. * Mediastinum: There are multiple mildly prominent mediastinal nodes. * Nubia are not optimally evaluated without contrast material. There calcified subcarinal * There is a 2.2 cm left adrenal nodule * bilateral airspace disease; shotty mediastinal adenopathy, infectious/ inflammatory versus neoplastic; atherosclerotic disease with coronary artery calcifications; calcified pleural plaque; indeterminate left adrenal nodule Fiberoptic bronchoscopy/brushing/biopsy and BAL (02/11/17) : F/U biopsy result of the right middle lobe Status: Acute (2) Chest pain Assessment & Plan: Resolved R/o ACS Troponin : Negative X 3 No EKG Changes Hgb1AC: 8.7 Aspirin 81 mg PO daily Status: Acute (3) Diabetes mellitus Assessment & Plan: HgbA1c: 8.7 Lipid panel: * Trigly: 61 * Cholesterol: 122 * LDL: 73 * HDL: 32 Accuchecks ACHS ISS medium dose--adjusted to high risk protocol (02/11/17) Continue to home medications: * Glipizide 10mg PO daily * Metformin 1000mg PO BID * Januvia 100mg PO daily * Lopid 600mg PO BID Status: Acute (4) History of asthma Assessment & Plan: stable Duonebs 3ml INH RQ3 PRN and Duonebs 3ml INH RQ6 [facility] Solu-Medrol 40mg IVP Q12H---> adjusted to 20mg IV Q12 (02/13/17) Advair 1 puff INH RQ12H Spiriva 18 mcg INH RQ24H 2L nasal cannula Status: Acute (5) History of depression Assessment & Plan: Continue home medication: * Zoloft 50mg PO BID Status: Acute (6) History of schizophrenia Assessment & Plan: Continue home medication: * Abilify 30mg PO HS Status: Acute (7) Prophylactic measure Assessment & Plan: Ambulating Protonix 40mg PO daily Lovenox 30mg SC daily Status: Acute (8) Tobacco abuse Status: Acute (9) Acute hyponatremia Status: Acute <EssieJohan H - Last Filed: 02/13/17 16:09> Objective - Vital Signs/Intake and Output Vital Signs (last 24 hours): Temp Pulse Resp BP Pulse Ox 97.8 F 106 H 21 133/79 93 L 02/13/17 07:52 02/13/17 15:53 02/13/17 07:52 02/13/17 07:52 02/13/17 07:52 Intake and Output: 02/13/17 02/13/17 06:59 18:59 Intake Total 970 Output Total 360 3 Balance 610 -3 - Medications Medications: Current Medications Acetaminophen (Tylenol 325mg Tab) 650 mg PO Q6 PRN PRN Reason: Fever >100.4 F Albuterol/Ipratropium (Duoneb 3 Mg/0.5 Mg (3 Ml) Ud) 3 ml INH RQ6 [facility] Last Admin: 02/13/17 13:00 Dose: 3 ml Albuterol/Ipratropium (Duoneb 3 Mg/0.5 Mg (3 Ml) Ud) 3 ml INH RQ3 PRN PRN Reason: Shortness of Breath Aripiprazole (Abilify) 30 mg PO HS [facility] Last Admin: 02/12/17 21:29 Dose: 30 mg Aspirin (Ecotrin) 81 mg PO DAILY [facility] Last Admin: 02/13/17 09:19 Dose: 81 mg Benzocaine/Menthol (Cepacol Sore Throat) 1 narendra MT Q2 PRN PRN Reason: Sore Throat Last Admin: 02/12/17 21:26 Dose: 1 narendra Benzonatate (Tessalon Perles) 100 mg PO TID [facility] Last Admin: 02/13/17 13:10 Dose: 100 mg Docusate Sodium (Colace) 100 mg PO BID [facility] Last Admin: 02/13/17 09:19 Dose: 100 mg Enoxaparin Sodium (Lovenox) 30 mg SC DAILY [facility] Last Admin: 02/13/17 09:19 Dose: 30 mg Gabapentin (Neurontin) 100 mg PO DAILY [facility] Last Admin: 02/13/17 09:19 Dose: 100 mg Gemfibrozil (Lopid) 600 mg PO BID [facility] Last Admin: 02/13/17 09:19 Dose: 600 mg Glipizide (Glucotrol) 10 mg PO DAILY [facility] Last Admin: 02/13/17 09:19 Dose: 10 mg Sodium Chloride (Sodium Chloride 0.9%) 1,000 mls @ 100 mls/hr IV .Q10H [facility] Last Admin: 02/13/17 12:09 Dose: Not Given Moxifloxacin HCl (Avelox Iv 400mg/250ml Ns) 400 mg in 250 mls @ 167 mls/hr IVPB Q24H [facility] Last Admin: 02/12/17 21:26 Dose: 167 mls/hr Insulin Human Regular (Novolin R) 0 unit SC ACHS [facility] PRN Reason: Protocol Last Admin: 02/13/17 12:08 Dose: Not Given Loratadine (Claritin) 10 mg PO DAILY [facility] Last Admin: 02/13/17 09:19 Dose: 10 mg Metformin HCl (Glucophage) 1,000 mg PO BID [facility] Last Admin: 02/13/17 09:19 Dose: 1,000 mg Methylprednisolone (Solu-Medrol) 20 mg IVP Q12 [facility] Last Admin: 02/13/17 14:24 Dose: Not Given Nicotine (Nicoderm Cq) 1 patch TD DAILY [facility] Last Admin: 02/13/17 12:09 Dose: Not Given Ondansetron HCl (Zofran Inj) 4 mg IVP Q6 PRN PRN Reason: Nausea/Vomiting Pantoprazole Sodium (Protonix Ec Tab) 40 mg PO DAILY [facility] Last Admin: 02/13/17 09:19 Dose: 40 mg Fluticasone/Salmeterol (Advair Diskus 250/50) 1 puff INH RQ12 [facility] Last Admin: 02/13/17 08:32 Dose: 1 puff Sertraline HCl (Zoloft) 50 mg PO BID [facility] Last Admin: 02/13/17 09:19 Dose: 50 mg Sitagliptin Phosphate (Januvia) 100 mg PO DAILY [facility] Last Admin: 02/13/17 09:19 Dose: 100 mg Tiotropium [place] (Spiriva) 18 mcg INH RQ24 [facility] Last Admin: 02/13/17 08:33 Dose: 18 mcg - Labs Labs: 02/13/17 08:23 02/13/17 08:23 Attending/Attestation - Attestation I have personally seen and examined this patient.: Yes I have fully participated in the care of the patient.: Yes I have reviewed all pertinent clinical information, including history, physical exam and plan: Yes Notes (Text): 02/13/17 16:04 Medical attending: Patient was seen and examined by me, agrees the above note by medical assistant ob gyn. The patient stated that his breathing was much improved from before, he says that he feels quite well were to decrease his Solu-Medrol again to just 20 IV twice a day. Most of the studies from the bronchoscopy that he had done recently has returned and are negative at this time were still waiting on additional few studies. He remains on IV antibiotics at this time.
--- NOTE | 2017-02-13 13:20 | CP.PCM.PN ---
Subjective - Date & Time of Evaluation Date of Evaluation: 02/13/17 Time of Evaluation: 07:30 - Subjective Subjective: Patient seen and examined Sitting comfortably in no acute distress Breathing and cough improved Afebrile Objective - Vital Signs/Intake and Output Vital Signs (last 24 hours): Temp Pulse Resp BP Pulse Ox 97.8 F 99 H 21 133/79 93 L 02/13/17 07:52 02/13/17 08:00 02/13/17 07:52 02/13/17 07:52 02/13/17 07:52 Intake and Output: 02/13/17 02/13/17 06:59 18:59 Intake Total 970 Output Total 360 Balance 610 - Medications Medications: Current Medications Acetaminophen (Tylenol 325mg Tab) 650 mg PO Q6 PRN PRN Reason: Fever >100.4 F Albuterol/Ipratropium (Duoneb 3 Mg/0.5 Mg (3 Ml) Ud) 3 ml INH RQ6 [facility] Last Admin: 02/13/17 13:00 Dose: 3 ml Albuterol/Ipratropium (Duoneb 3 Mg/0.5 Mg (3 Ml) Ud) 3 ml INH RQ3 PRN PRN Reason: Shortness of Breath Aripiprazole (Abilify) 30 mg PO HS [facility] Last Admin: 02/12/17 21:29 Dose: 30 mg Aspirin (Ecotrin) 81 mg PO DAILY [facility] Last Admin: 02/13/17 09:19 Dose: 81 mg Benzocaine/Menthol (Cepacol Sore Throat) 1 narendra MT Q2 PRN PRN Reason: Sore Throat Last Admin: 02/12/17 21:26 Dose: 1 narendra Benzonatate (Tessalon Perles) 100 mg PO TID [facility] Last Admin: 02/13/17 13:10 Dose: 100 mg Docusate Sodium (Colace) 100 mg PO BID [facility] Last Admin: 02/13/17 09:19 Dose: 100 mg Enoxaparin Sodium (Lovenox) 30 mg SC DAILY [facility] Last Admin: 02/13/17 09:19 Dose: 30 mg Gabapentin (Neurontin) 100 mg PO DAILY [facility] Last Admin: 02/13/17 09:19 Dose: 100 mg Gemfibrozil (Lopid) 600 mg PO BID [facility] Last Admin: 02/13/17 09:19 Dose: 600 mg Glipizide (Glucotrol) 10 mg PO DAILY [facility] Last Admin: 02/13/17 09:19 Dose: 10 mg Sodium Chloride (Sodium Chloride 0.9%) 1,000 mls @ 100 mls/hr IV .Q10H [facility] Last Admin: 02/13/17 12:09 Dose: Not Given Moxifloxacin HCl (Avelox Iv 400mg/250ml Ns) 400 mg in 250 mls @ 167 mls/hr IVPB Q24H [facility] Last Admin: 02/12/17 21:26 Dose: 167 mls/hr Insulin Human Regular (Novolin R) 0 unit SC ACHS [facility] PRN Reason: Protocol Last Admin: 02/13/17 12:08 Dose: Not Given Loratadine (Claritin) 10 mg PO DAILY [facility] Last Admin: 02/13/17 09:19 Dose: 10 mg Metformin HCl (Glucophage) 1,000 mg PO BID [facility] Last Admin: 02/13/17 09:19 Dose: 1,000 mg Methylprednisolone (Solu-Medrol) 20 mg IVP Q12H [facility] Nicotine (Nicoderm Cq) 1 patch TD DAILY [facility] Last Admin: 02/13/17 12:09 Dose: Not Given Ondansetron HCl (Zofran Inj) 4 mg IVP Q6 PRN PRN Reason: Nausea/Vomiting Pantoprazole Sodium (Protonix Ec Tab) 40 mg PO DAILY [facility] Last Admin: 02/13/17 09:19 Dose: 40 mg Fluticasone/Salmeterol (Advair Diskus 250/50) 1 puff INH RQ12 [facility] Last Admin: 02/13/17 08:32 Dose: 1 puff Sertraline HCl (Zoloft) 50 mg PO BID [facility] Last Admin: 02/13/17 09:19 Dose: 50 mg Sitagliptin Phosphate (Januvia) 100 mg PO DAILY [facility] Last Admin: 02/13/17 09:19 Dose: 100 mg Tiotropium [place] (Spiriva) 18 mcg INH RQ24 [facility] Last Admin: 02/13/17 08:33 Dose: 18 mcg - Labs Labs: 02/13/17 08:23 02/13/17 08:23 - Head Exam Head Exam: ATRAUMATIC, NORMOCEPHALIC - Eye Exam Eye Exam: Normal appearance - ENT Exam ENT Exam: Mucous Membranes Moist - Neck Exam Neck Exam: Full ROM, Normal Inspection - Respiratory Exam Respiratory Exam: Clear to Ausculation Bilateral - Cardiovascular Exam Cardiovascular Exam: REGULAR RHYTHM - GI/Abdominal Exam GI & Abdominal Exam: Soft, Normal Bowel Sounds - Extremities Exam Extremities Exam: Normal Inspection - Neurological Exam Neurological Exam: Alert, Oriented x3 Assessment and Plan (1) COPD with acute lower respiratory infection Assessment & Plan: awaiting for pathology report Discharge patient home on prednisone, nebulizer treatment Follow up in the office Status: Acute (2) Pneumonitis Status: Acute
[2017-02-13 16:11] VITALS: RESP 20
[2017-02-13] MEDS: Moxifloxacin IV 400mg/250ml NS 400 MG/250 ML BAG IVPB SCH (19:56)
[2017-02-14] MEDS: Albuterol-Ipratrop 3 mg / 0.5 (3 ml) UD INH SCH ×3 (02:00→13:03)
[2017-02-14 07:23] LABS: BASO % 0.3 % (0.0-2.0); EOS # 0.2 K/uL (0.0-0.7); EOS % 1.1 % (0.0-4.0); HEMOGLOBIN 14.6 g/dL (12.0-18.0); LYMPH # 1.9 K/uL (1.0-4.3); LYMPH % 12.9 % (20.0-40.0); MEAN CORPUSCULAR HEMOGLOBIN 26.1 pg (27.0-31.0); MEAN CORPUSCULAR HGB CONC 33.5 g/dL (33.0-37.0); MEAN PLATELET VOLUME 8.4 fL (7.2-11.7); MONO # 1.3 K/uL (0.0-0.8); MONO % 8.8 % (0.0-10.0); NEUT # 11.4 K/uL (1.8-7.0); NEUT % 76.9 % (50.0-75.0); NRBC % 0.1 % (0.0-2.0); RBC 5.59 Mil/uL (4.40-5.90); RED CELL DISTRIBUTION WIDTH 13.8 % (11.5-14.5); WHITE BLOOD COUNT 14.8 K/uL (4.8-10.8)
[2017-02-14 07:35] LABS: ALBUMIN 3.7 g/dL (3.5-5.0)
[2017-02-14 07:38] LABS: AST/SGOT 40 U/L (17-59); GFR AFRICAN-AMERICAN > 60; GFR NON-AFRICAN AMERICAN > 60
[2017-02-14 07:39] LABS: ALT/SGPT 75 U/L (21-72); BLOOD UREA NITROGEN 14 mg/dL (9-20); CALCIUM 9.3 mg/dl (8.6-10.4)
[2017-02-14 07:40] LABS: MAGNESIUM 1.8 mg/dL (1.6-2.3)
[2017-02-14] MEDS: Fluticasone-Salmeterol 250-50mcg Diskus INH SCH (08:12)
[2017-02-14] MEDS: Tiotropium 18 mcg Cap For Inhalation INH SCH (08:13)
--- NOTE | 2017-02-14 09:09 | CP.PCM.PN ---
Subjective - Date & Time of Evaluation Date of Evaluation: 02/14/17 Objective - Vital Signs/Intake and Output Vital Signs (last 24 hours): Temp Pulse Resp BP Pulse Ox 97.3 F L 89 20 118/68 95 02/13/17 23:10 02/14/17 00:59 02/13/17 23:10 02/13/17 23:10 02/13/17 23:10 Intake and Output: 02/14/17 02/14/17 06:59 18:59 Intake Total 250 Balance 250 - Medications Medications: Current Medications Acetaminophen (Tylenol 325mg Tab) 650 mg PO Q6 PRN PRN Reason: Fever >100.4 F Albuterol/Ipratropium (Duoneb 3 Mg/0.5 Mg (3 Ml) Ud) 3 ml INH RQ6 [facility] Last Admin: 02/14/17 08:13 Dose: 3 ml Albuterol/Ipratropium (Duoneb 3 Mg/0.5 Mg (3 Ml) Ud) 3 ml INH RQ3 PRN PRN Reason: Shortness of Breath Aripiprazole (Abilify) 30 mg PO HS [facility] Last Admin: 02/13/17 21:35 Dose: 30 mg Aspirin (Ecotrin) 81 mg PO DAILY [facility] Last Admin: 02/13/17 09:19 Dose: 81 mg Benzocaine/Menthol (Cepacol Sore Throat) 1 narendra MT Q2 PRN PRN Reason: Sore Throat Last Admin: 02/12/17 21:26 Dose: 1 narendra Benzonatate (Tessalon Perles) 100 mg PO TID [facility] Last Admin: 02/13/17 17:29 Dose: 100 mg Docusate Sodium (Colace) 100 mg PO BID [facility] Last Admin: 02/13/17 17:29 Dose: 100 mg Enoxaparin Sodium (Lovenox) 30 mg SC DAILY [facility] Last Admin: 02/13/17 09:19 Dose: 30 mg Gabapentin (Neurontin) 100 mg PO DAILY [facility] Last Admin: 02/13/17 09:19 Dose: 100 mg Gemfibrozil (Lopid) 600 mg PO BID [facility] Last Admin: 02/13/17 17:29 Dose: 600 mg Glipizide (Glucotrol) 10 mg PO DAILY [facility] Last Admin: 02/13/17 09:19 Dose: 10 mg Moxifloxacin HCl (Avelox Iv 400mg/250ml Ns) 400 mg in 250 mls @ 167 mls/hr IVPB Q24H [facility] Last Admin: 02/13/17 19:56 Dose: 167 mls/hr Insulin Human Regular (Novolin R) 0 unit SC ACHS [facility] PRN Reason: Protocol Last Admin: 02/13/17 21:34 Dose: 2 unit Loratadine (Claritin) 10 mg PO DAILY [facility] Last Admin: 02/13/17 09:19 Dose: 10 mg Metformin HCl (Glucophage) 1,000 mg PO BID [facility] Last Admin: 02/13/17 17:29 Dose: 1,000 mg Methylprednisolone (Solu-Medrol) 20 mg IVP Q12 [facility] Last Admin: 02/13/17 21:36 Dose: 20 mg Nicotine (Nicoderm Cq) 1 patch TD DAILY [facility] Last Admin: 02/13/17 12:09 Dose: Not Given Ondansetron HCl (Zofran Inj) 4 mg IVP Q6 PRN PRN Reason: Nausea/Vomiting Pantoprazole Sodium (Protonix Ec Tab) 40 mg PO DAILY [facility] Last Admin: 02/13/17 09:19 Dose: 40 mg Fluticasone/Salmeterol (Advair Diskus 250/50) 1 puff INH RQ12 [facility] Last Admin: 02/14/17 08:12 Dose: 1 puff Sertraline HCl (Zoloft) 50 mg PO BID [facility] Last Admin: 02/13/17 17:29 Dose: 50 mg Sitagliptin Phosphate (Januvia) 100 mg PO DAILY [facility] Last Admin: 02/13/17 09:19 Dose: 100 mg Tiotropium [place] (Spiriva) 18 mcg INH RQ24 [facility] Last Admin: 02/14/17 08:13 Dose: 18 mcg - Labs Labs: 02/14/17 07:15 02/14/17 07:15
[2017-02-14] MEDS: (Novolin R) Insulin Human Regular 100 units/ml vial SC SCH ×2 (09:32→13:57)
[2017-02-14] MEDS: Pantoprazole 40 mg EC Tab PO SCH (09:32)
[2017-02-14] MEDS: Enoxaparin 30 mg Syringe SC SCH (09:32)
[2017-02-14] MEDS: MethylPREDNISolone 40 mg Vial IVP SCH (09:34)
[2017-02-14 11:57] VITALS: BP 127/81; PULSE 92
[2017-02-14 12:19] VITALS: TEMP 97.4; O2SAT 95
--- NOTE | 2017-02-14 13:00 | CP.PCM.DIS ---
<Monica Fairchild - Last Filed: 02/14/17 17:53> Provider - Provider Date of Admission: 02/09/17 15:49 Attending physician: Johan Fountain DO Consults: Dr. Rutledge ( Pulm) Time Spent in preparation of Discharge (in minutes): 35 Diagnosis - Discharge Diagnosis (1) Shortness of breath Status: Acute (2) Chest pain Status: Acute (3) Diabetes mellitus Status: Chronic (4) History of asthma Status: Chronic (5) History of depression Status: Chronic (6) History of schizophrenia Status: Chronic Hospital Course - Lab Results Lab Results: Micro Results 02/11/17 12:00 Bronchial Washings Gram Stain - Final 02/11/17 12:00 Bronchial Washings Bronchial Culture - Final Yeast Species 02/12/17 10:00 Other: Please Indicate Mycobacterial Culture - Preliminary 02/11/17 12:00 Bronchial Washings Fungal Culture - Preliminary 02/10/17 15:08 Sputum Gram Stain - Final 02/10/17 15:08 Sputum Sputum Culture - Final NORMAL ORAL MITZI Most Recent Lab Values WBC 14.8 K/uL (4.8-10.8) H 02/14/17 07:15 RBC 5.59 Mil/uL (4.40-5.90) 02/14/17 07:15 Hgb 14.6 g/dL (12.0-18.0) 02/14/17 07:15 Hct 43.6 % (35.0-51.0) 02/14/17 07:15 MCV 78.0 fL (80.0-94.0) L 02/14/17 07:15 MCH 26.1 pg (27.0-31.0) L 02/14/17 07:15 MCHC 33.5 g/dL (33.0-37.0) 02/14/17 07:15 RDW 13.8 % (11.5-14.5) 02/14/17 07:15 Plt Count 372 K/uL (130-400) 02/14/17 07:15 MPV 8.4 fL (7.2-11.7) 02/14/17 07:15 Neut % (Auto) 76.9 % (50.0-75.0) H 02/14/17 07:15 Lymph % (Auto) 12.9 % (20.0-40.0) L 02/14/17 07:15 Petroleum % (Auto) 8.8 % (0.0-10.0) 02/14/17 07:15 Eos % (Auto) 1.1 % (0.0-4.0) 02/14/17 07:15 Baso % (Auto) 0.3 % (0.0-2.0) 02/14/17 07:15 Neut # 11.4 K/uL (1.8-7.0) H 02/14/17 07:15 Lymph # 1.9 K/uL (1.0-4.3) 02/14/17 07:15 Petroleum # 1.3 K/uL (0.0-0.8) H 02/14/17 07:15 Eos # 0.2 K/uL (0.0-0.7) 02/14/17 07:15 Baso # 0.0 K/uL (0.0-0.2) 02/14/17 07:15 Neutrophils % (Manual) 85 % (50-75) H 02/12/17 07:24 Band Neutrophils % 1 % (0-2) 02/12/17 07:24 Lymphocytes % (Manual) 5 % (20-40) L 02/12/17 07:24 Monocytes % (Manual) 8 % (0-10) 02/12/17 07:24 Eosinophils % (Manual) 1 % (0-4) 02/12/17 07:24 Platelet Estimate Normal (NORMAL) 02/12/17 07:24 RBC Morphology Normal 02/12/17 07:24 Puncture Site Rra 02/09/17 14:46 pCO2 39 mm/Hg (35-45) 02/09/17 14:46 pO2 52 mm/Hg (80-100) L 02/09/17 14:46 HCO3 25.8 mmol/L (21-28) 02/09/17 14:46 ABG pH 7.43 (7.35-7.45) 02/09/17 14:46 ABG Total CO2 27.1 mmol/L (22-28) 02/09/17 14:46 ABG O2 Saturation 92.2 % (95-98) L 02/09/17 14:46 ABG Base Excess 1.5 mmol/L (-2.0-3.0) 02/09/17 14:46 Roberto Test Po 02/09/17 14:46 ABG Potassium 4.0 mmol/L (3.6-5.2) 02/09/17 14:46 A-a O2 Difference 127.0 mm/Hg 02/09/17 14:46 Respiratory Index 2.4 02/09/17 14:46 Sodium 128.0 mmol/l (132-148) L 02/09/17 14:46 Chloride 94.0 mmol/L (98-107) L 02/09/17 14:46 Glucose 176 mg/dl (75-110) H 02/09/17 14:46 Lactate 1.0 mmol/L (0.7-2.1) 02/09/17 14:46 Liter Flow 3.0 02/09/17 14:46 FiO2 32.0 % 02/09/17 14:46 Sodium 130 mmol/L (132-148) L 02/14/17 07:15 Potassium 3.8 mmol/L (3.6-5.2) 02/14/17 07:15 Chloride 84 mmol/L (98-107) L 02/14/17 07:15 Carbon Dioxide 29 mmol/L (22-30) 02/14/17 07:15 Anion Gap 21 (10-20) H 02/14/17 07:15 BUN 14 mg/dL (9-20) 02/14/17 07:15 Creatinine 0.6 MG/DL (0.8-1.5) L 02/14/17 07:15 Est GFR ( Amer) > 60 02/14/17 07:15 Est GFR (Non-Af Amer) > 60 02/14/17 07:15 POC Glucose (mg/dL) 251 mg/dL (65-110) H 02/14/17 11:31 Random Glucose 300 mg/dL (75-110) H 02/14/17 07:15 Hemoglobin A1c 8.7 % (4.2-6.5) H 02/10/17 07:27 Serum Osmolality 276 mosm/kg (272-300) 02/09/17 12:44 Calcium 9.3 mg/dl (8.6-10.4) 02/14/17 07:15 Phosphorus 4.1 mg/dL (2.5-4.5) 02/14/17 07:15 Magnesium 1.8 mg/dL (1.6-2.3) 02/14/17 07:15 Total Bilirubin 0.5 mg/dL (0.2-1.3) 02/14/17 07:15 AST 40 U/L (17-59) 02/14/17 07:15 ALT 75 U/L (21-72) H 02/14/17 07:15 Alkaline Phosphatase 73 U/L (38-126) 02/14/17 07:15 Troponin I < 0.0120 ng/mL (0.00-0.120) 02/10/17 10:38 NT-Pro-B Natriuret Pep 65.8 pg/mL (0-900) 02/09/17 13:51 Total Protein 7.2 g/dL (6.3-8.3) 02/14/17 07:15 Albumin 3.7 g/dL (3.5-5.0) 02/14/17 07:15 Globulin 3.5 gm/dL (2.2-3.9) 02/14/17 07:15 Albumin/Globulin Ratio 1.0 (1.0-2.1) 02/14/17 07:15 Triglycerides 61 mg/dL (0-149) D 02/10/17 07:27 Cholesterol 122 mg/dL (0-199) 02/10/17 07:27 LDL Cholesterol Direct 73 mg/dL (0-129) 02/10/17 07:27 HDL Cholesterol 32 mg/dL (30-70) 02/10/17 07:27 Procalcitonin < 0.05 NG/ML (0.19-0.49) L 02/10/17 07:27 Arterial Blood Potassium 4.0 mmol/L (3.6-5.2) 02/09/17 14:46 Urine Color Yellow (YELLOW) 02/09/17 14:48 Urine Clarity Clear (Clear) 02/09/17 14:48 Urine pH 7.0 (5.0-8.0) 02/09/17 14:48 Ur Specific [place] 1.006 (1.003-1.030) 02/09/17 14:48 Urine Protein Negative mg/dL (NEGATIVE) 02/09/17 14:48 Urine Glucose (UA) Normal mg/dL (Normal) 02/09/17 14:48 Urine Ketones Negative mg/dL (NEGATIVE) 02/09/17 14:48 Urine Blood Negative (NEGATIVE) 02/09/17 14:48 Urine Nitrate Negative (NEGATIVE) 02/09/17 14:48 Urine Bilirubin Negative (NEGATIVE) 02/09/17 14:48 Urine Urobilinogen Normal mg/dL (0.2-1.0) 02/09/17 14:48 Ur Leukocyte Esterase Neg [place]/uL (Negative) 02/09/17 14:48 Urine WBC (Auto) < 1 /hpf (0-5) 02/09/17 14:48 Urine RBC (Auto) < 1 /hpf (0-3) 02/09/17 14:48 Urine Osmolality 215 mosm/kg (300-1000) L 02/09/17 12:44 Ur Random Sodium 5 mmol/L 02/09/17 12:44 - Hospital Course Hospital Course: On admission: 61 year old male with past medical history of asthma, DM, HTN, schizophrenia presents to hospital for cough and shortness of breath ongoing for about 5 days. Patient states that he has productive cough with whitish sputum for 5 days. This morning, patient went to PMD, Dr. Eyal Molina's office and was given Medrol and told to go to ED. Patient states he has been using his inhalers at home without much relief. Patient denies having any fevers, chills. He does c/ o of B/L chest pain worse with coughing ongoing for about 4 days. Patient was found to have WBC count of 17.5 in ED. However, patient was afebrile and had stable VS. Patient was admitted to hospital 6 months ago for similar symptoms. At that time, patient had CT chest which showed patchy nonspecific ground glass opacities. At this time, patient is not c/o SOB, chest pain, abd pain, N/ V. 12 point ROS are negative except for the above mentioned. Hospital Course: Patient had studies performed including: CT chest and EKG and ROMIs. Chest CT showed: patchy airspace opacities greatest in the upper lobes and right middle lobe. There is less extensive patchy airspace disease in the lower lobes. There is a partially calcified pleural plaque on the left. There are no effusions. There is minimal pleural thickening at the right base. There are vascular calcifications. * Mediastinum: There are multiple mildly prominent mediastinal nodes. * Nubia are not optimally evaluated without contrast material. There calcified subcarinal * There is a 2.2 cm left adrenal nodule * bilateral airspace disease; shotty mediastinal adenopathy, infectious/ inflammatory versus neoplastic; atherosclerotic disease with coronary artery calcifications; calcified pleural plaque; indeterminate left adrenal nodule * Refer to full report. Patient appeared to have an underlying exacerbation of asthma along with questionable infectious etiology. Patient started on treatments of duonebs, spiriva and advair. Patient started on antibiotics and monitored. Dr. Rutledge of Pulmonology consulted on the case. He performed a bronchoscopy with culture samples negative for infectious etiology EKG NSR with questionable bundle branch changes; not significant for ST segment changes. ROMIs were negative x3. Patient found to be hyponatremic likely due to malnutrition. Patient encouraged to make some dietary changes. Patient's chronic ongoing medical conditions ( HTN, DM ) managed as well. Patient with noted improvement. Discharge instructions as listed: Patient is medically stable for discharge home. Patient should follow up with Primary medical doctor within one week as directed. Patient should follow up with Dr. Rutledge within 2 weeks of discharge. Patient to take medications, Avelox , Tessalon Perles and Medrol dose pack as directed below. Avelox- once a day for four days. Patient should eat a probiotic yogurt, once a day until antibiotics are completed. Tessalon Perles 100 mg, take one by mouth three times a day. Medrol dose pack: Take one 4 mg dose 5 times a day for one day then stop. Take one 4 mg dose 4 times a day for one day then stop. Take one 4 mg dose 3 times a day for one day then stop. Take one 4 mg dose 2 times a day for one day then stop. Take one 4 mg dose once a day for one day then stop. Finally stop. If symptoms,return, go to the emergency department. Instructions explained to patient who is aware. This is a brief summary of events. For a complete course, refer to the medical record. Discharge Exam - Head Exam Head Exam: NORMAL INSPECTION, NORMOCEPHALIC - Eye Exam Eye Exam: EOMI, Normal appearance, PERRL Pupil Exam: NORMAL ACCOMODATION - ENT Exam ENT Exam: Mucous Membranes Moist - Neck Exam Neck exam: Full Rom - Respiratory Exam Respiratory Exam: NORMAL BREATHING PATTERN. absent: Wheezes, Respiratory Distress - Cardiovascular Exam Cardiovascular Exam: +S1, +S2 - GI/Abdominal Exam GI & Abdominal Exam: Distended, Normal Bowel Sounds, Soft. absent: Firm, Guarding, Hernia, Rigid - Extremities Exam Extremities exam: full ROM, normal capillary refill, pedal pulses present - Back Exam Back exam: FULL ROM - Neurological Exam Neurological exam: CN II-XII Intact, Normal Gait, Oriented x3 - Psychiatric Exam Psychiatric exam: Normal Affect, Normal Mood - Skin Skin Exam: Dry, Intact, Normal Color, Warm Discharge Plan - Discharge Medications Prescriptions: Benzonatate [Tessalon Perles] 100 mg PO TID #12 sgl Methylprednisolone [Medrol Dose Pack (21 tabs)] See Taper PO BID #21 mg Moxifloxacin [Avelox] 400 mg PO DAILY #4 tab - Follow Up Plan Condition: IMPROVED Disposition: HOME/ ROUTINE Instructions: Benzonatate (By mouth), Methylprednisolone (By mouth), Moxifloxacin (By mouth), COPD (Chronic Obstructive Pulmonary Disease) (GEN), Dyspnea (GEN), How Your Lungs Work (GEN) Additional Instructions: Patient is medically stable for discharge home. Patient should follow up with Primary medical doctor within one week as directed. Patient should follow up with Dr. Rutledge within 2 weeks of discharge. Patient to take medications, Avelox , Tessalon Perles and Medrol dose pack as directed below. Avelox- once a day for four days. Patient should eat a probiotic yogurt, once a day until antibiotics are completed. Tessalon Perles 100 mg, take one by mouth three times a day. Medrol dose pack: Take one 4 mg dose 5 times a day for one day then stop. Take one 4 mg dose 4 times a day for one day then stop. Take one 4 mg dose 3 times a day for one day then stop. Take one 4 mg dose 2 times a day for one day then stop. Take one 4 mg dose once a day for one day then stop. Finally stop. If symptoms,return, go to the emergency department. Instructions explained to patient who is aware. Referrals: Jesse Rutledge MD [Staff Provider] - <Johan Fountain - Last Filed: 02/15/17 07:45> Provider - Provider Date of Admission: 02/09/17 15:49 Attending physician: Johan Fountain, DO Hospital Course - Lab Results Lab Results: Micro Results 02/11/17 12:00 Bronchial Washings Gram Stain - Final 02/11/17 12:00 Bronchial Washings Bronchial Culture - Final Yeast Species 02/12/17 10:00 Other: Please Indicate Mycobacterial Culture - Preliminary 02/11/17 12:00 Bronchial Washings Fungal Culture - Preliminary 02/10/17 15:08 Sputum Gram Stain - Final 02/10/17 15:08 Sputum Sputum Culture - Final NORMAL ORAL MITZI Most Recent Lab Values WBC 14.8 K/uL (4.8-10.8) H 02/14/17 07:15 RBC 5.59 Mil/uL (4.40-5.90) 02/14/17 07:15 Hgb 14.6 g/dL (12.0-18.0) 02/14/17 07:15 Hct 43.6 % (35.0-51.0) 02/14/17 07:15 MCV 78.0 fL (80.0-94.0) L 02/14/17 07:15 MCH 26.1 pg (27.0-31.0) L 02/14/17 07:15 MCHC 33.5 g/dL (33.0-37.0) 02/14/17 07:15 RDW 13.8 % (11.5-14.5) 02/14/17 07:15 Plt Count 372 K/uL (130-400) 02/14/17 07:15 MPV 8.4 fL (7.2-11.7) 02/14/17 07:15 Neut % (Auto) 76.9 % (50.0-75.0) H 02/14/17 07:15 Lymph % (Auto) 12.9 % (20.0-40.0) L 02/14/17 07:15 Petroleum % (Auto) 8.8 % (0.0-10.0) 02/14/17 07:15 Eos % (Auto) 1.1 % (0.0-4.0) 02/14/17 07:15 Baso % (Auto) 0.3 % (0.0-2.0) 02/14/17 07:15 Neut # 11.4 K/uL (1.8-7.0) H 02/14/17 07:15 Lymph # 1.9 K/uL (1.0-4.3) 02/14/17 07:15 Petroleum # 1.3 K/uL (0.0-0.8) H 02/14/17 07:15 Eos # 0.2 K/uL (0.0-0.7) 02/14/17 07:15 Baso # 0.0 K/uL (0.0-0.2) 02/14/17 07:15 Neutrophils % (Manual) 85 % (50-75) H 02/12/17 07:24 Band Neutrophils % 1 % (0-2) 02/12/17 07:24 Lymphocytes % (Manual) 5 % (20-40) L 02/12/17 07:24 Monocytes % (Manual) 8 % (0-10) 02/12/17 07:24 Eosinophils % (Manual) 1 % (0-4) 02/12/17 07:24 Platelet Estimate Normal (NORMAL) 02/12/17 07:24 RBC Morphology Normal 02/12/17 07:24 Puncture Site Rra 02/09/17 14:46 pCO2 39 mm/Hg (35-45) 02/09/17 14:46 pO2 52 mm/Hg (80-100) L 02/09/17 14:46 HCO3 25.8 mmol/L (21-28) 02/09/17 14:46 ABG pH 7.43 (7.35-7.45) 02/09/17 14:46 ABG Total CO2 27.1 mmol/L (22-28) 02/09/17 14:46 ABG O2 Saturation 92.2 % (95-98) L 02/09/17 14:46 ABG Base Excess 1.5 mmol/L (-2.0-3.0) 02/09/17 14:46 Roberto Test Po 02/09/17 14:46 ABG Potassium 4.0 mmol/L (3.6-5.2) 02/09/17 14:46 A-a O2 Difference 127.0 mm/Hg 02/09/17 14:46 Respiratory Index 2.4 02/09/17 14:46 Sodium 128.0 mmol/l (132-148) L 02/09/17 14:46 Chloride 94.0 mmol/L (98-107) L 02/09/17 14:46 Glucose 176 mg/dl (75-110) H 02/09/17 14:46 Lactate 1.0 mmol/L (0.7-2.1) 02/09/17 14:46 Liter Flow 3.0 02/09/17 14:46 FiO2 32.0 % 02/09/17 14:46 Sodium 130 mmol/L (132-148) L 02/14/17 07:15 Potassium 3.8 mmol/L (3.6-5.2) 02/14/17 07:15 Chloride 84 mmol/L (98-107) L 02/14/17 07:15 Carbon Dioxide 29 mmol/L (22-30) 02/14/17 07:15 Anion Gap 21 (10-20) H 02/14/17 07:15 BUN 14 mg/dL (9-20) 02/14/17 07:15 Creatinine 0.6 MG/DL (0.8-1.5) L 02/14/17 07:15 Est GFR ( Amer) > 60 02/14/17 07:15 Est GFR (Non-Af Amer) > 60 02/14/17 07:15 POC Glucose (mg/dL) 251 mg/dL (65-110) H 02/14/17 11:31 Random Glucose 300 mg/dL (75-110) H 02/14/17 07:15 Hemoglobin A1c 8.7 % (4.2-6.5) H 02/10/17 07:27 Serum Osmolality 276 mosm/kg (272-300) 02/09/17 12:44 Calcium 9.3 mg/dl (8.6-10.4) 02/14/17 07:15 Phosphorus 4.1 mg/dL (2.5-4.5) 02/14/17 07:15 Magnesium 1.8 mg/dL (1.6-2.3) 02/14/17 07:15 Total Bilirubin 0.5 mg/dL (0.2-1.3) 02/14/17 07:15 AST 40 U/L (17-59) 02/14/17 07:15 ALT 75 U/L (21-72) H 02/14/17 07:15 Alkaline Phosphatase 73 U/L (38-126) 02/14/17 07:15 Troponin I < 0.0120 ng/mL (0.00-0.120) 02/10/17 10:38 NT-Pro-B Natriuret Pep 65.8 pg/mL (0-900) 02/09/17 13:51 Total Protein 7.2 g/dL (6.3-8.3) 02/14/17 07:15 Albumin 3.7 g/dL (3.5-5.0) 02/14/17 07:15 Globulin 3.5 gm/dL (2.2-3.9) 02/14/17 07:15 Albumin/Globulin Ratio 1.0 (1.0-2.1) 02/14/17 07:15 Triglycerides 61 mg/dL (0-149) D 02/10/17 07:27 Cholesterol 122 mg/dL (0-199) 02/10/17 07:27 LDL Cholesterol Direct 73 mg/dL (0-129) 02/10/17 07:27 HDL Cholesterol 32 mg/dL (30-70) 02/10/17 07:27 Procalcitonin < 0.05 NG/ML (0.19-0.49) L 02/10/17 07:27 Arterial Blood Potassium 4.0 mmol/L (3.6-5.2) 02/09/17 14:46 Urine Color Yellow (YELLOW) 02/09/17 14:48 Urine Clarity Clear (Clear) 02/09/17 14:48 Urine pH 7.0 (5.0-8.0) 02/09/17 14:48 Ur Specific [place] 1.006 (1.003-1.030) 02/09/17 14:48 Urine Protein Negative mg/dL (NEGATIVE) 02/09/17 14:48 Urine Glucose (UA) Normal mg/dL (Normal) 02/09/17 14:48 Urine Ketones Negative mg/dL (NEGATIVE) 02/09/17 14:48 Urine Blood Negative (NEGATIVE) 02/09/17 14:48 Urine Nitrate Negative (NEGATIVE) 02/09/17 14:48 Urine Bilirubin Negative (NEGATIVE) 02/09/17 14:48 Urine Urobilinogen Normal mg/dL (0.2-1.0) 02/09/17 14:48 Ur Leukocyte Esterase Neg Edmund/uL (Negative) 02/09/17 14:48 Urine WBC (Auto) < 1 /hpf (0-5) 02/09/17 14:48 Urine RBC (Auto) < 1 /hpf (0-3) 02/09/17 14:48 Urine Osmolality 215 mosm/kg (300-1000) L 02/09/17 12:44 Ur Random Sodium 5 mmol/L 02/09/17 12:44 Attending/Attestation - Attestation I have personally seen and examined this patient.: Yes I have fully participated in the care of the patient.: Yes I have reviewed all pertinent clinical information, including history, physical exam and plan: Yes Notes (Text): Medical Attending: Patient was seen and examined by me. Agree with the above note by the resident. Patient reported breathing was very good. He did not have chest pain, and was not short of breath at rest. We also saw him walking in the hallway without oxygen and he appeared to be doing very well. As mentioned previously he completed bronchoscopy and it was negative for maligant findings and the stain for AFB was negative as well. He will be discharged with medication as outlined above in the resident note. thank you Johan Fountain
== END 2017-02-14 14:53 | disposition home or self-care (01) | DRG 539 ==
LOC: C.ER 12:04 → C.9E 15:49 → C.5T 22:46
PROVIDERS: ADMIT Hospitalist; ATTEND Hospitalist
PROC: 0BBD8ZX Excision of Right Middle Lung Lobe, Via Natural or Artificial Opening Endoscopic, Diagnostic (ICD-10-PCS; 2017-02-11)
PROC: 0B9D8ZX Drainage of Right Middle Lung Lobe, Via Natural or Artificial Opening Endoscopic, Diagnostic (ICD-10-PCS; principal; 2017-02-11 17:00)
DX: J44.0 Chronic obstructive pulmonary disease with (acute) lower respiratory infection (principal); J18.9 Pneumonia, unspecified organism; E46 Unspecified protein-calorie malnutrition; J45.901 Unspecified asthma with (acute) exacerbation; E87.1 Hypo-osmolality and hyponatremia; J44.1 Chronic obstructive pulmonary disease with (acute) exacerbation; I10 Essential (primary) hypertension; F17.210 Nicotine dependence, cigarettes, uncomplicated; N40.0 Benign prostatic hyperplasia without lower urinary tract symptoms; E11.9 Type 2 diabetes mellitus without complications; I25.10 Atherosclerotic heart disease of native coronary artery without angina pectoris; E27.8 Other specified disorders of adrenal gland; E78.5 Hyperlipidemia, unspecified; F20.9 Schizophrenia, unspecified; F31.9 Bipolar disorder, unspecified; Z90.49 Acquired absence of other specified parts of digestive tract

== ENCOUNTER 2018-09-20 11:20 | Emergency (ER) | payer OTHER ==
[2018-09-20 11:20] VITALS: BMI 35.9
[2018-09-20] MEDS ORDERED: Sodium Chloride 0.9% 1,000 ML IV ONE (11:50)
[2018-09-20] MEDS ORDERED: Sodium Chloride 0.9% 1,000 ML ONE (11:59)
[2018-09-20 12:10] LABS: BASO # 0.1 K/uL (0.0-0.2); BASO % 0.5 % (0.0-2.0); EOS # 1.9 K/uL (0.0-0.7); EOS % 11.7 % (0.0-4.0); HEMOGLOBIN 15.9 g/dL (12.0-18.0); LYMPH # 2.3 K/uL (1.0-4.3); LYMPH % 14.1 % (20.0-40.0); MEAN CELL VOLUME 77.1 fL (80.0-94.0); MEAN CORPUSCULAR HEMOGLOBIN 26.2 pg (27.0-31.0); MONO # 1.2 K/uL (0.0-0.8); MONO % 7.6 % (0.0-10.0); NEUT # 10.8 K/uL (1.8-7.0); NEUT % 66.1 % (50.0-75.0); RBC 6.06 Mil/uL (4.40-5.90); RED CELL DISTRIBUTION WIDTH 14.8 % (11.5-14.5); WHITE BLOOD COUNT 16.3 K/uL (4.8-10.8)
[2018-09-20 12:57] LABS: ALB/GLOB RATIO 1.2 (1.0-2.1); ALBUMIN 4.2 g/dL (3.5-5.0); ALT/SGPT 30 U/L (21-72); AST/SGOT 36 U/L (17-59); BLOOD UREA NITROGEN 8 mg/dL (9-20); GFR NON-AFRICAN AMERICAN > 60
[2018-09-20 13:10] LABS: B-TYPE NATRIURETIC PEPTIDE 52.7 pg/mL (0-900)
[2018-09-20 13:33] VITALS: BP 140/70; PULSE 93; RESP 24; TEMP 98.1; O2SAT 95
--- NOTE | 2018-09-20 13:38 | C.PDOC ---
History Of Present Illness 63 year old male, whose past medical history includes asthma, hypertension and bipolar disorder, and diabetes, presents to the ED for evaluation of fever and productive cough which began around 2-3 weeks ago. Patient has not yet followed up with his PMD, but is scheduled for an upcoming appointment. Patient denies abdominal pain, diarrhea. Time Seen by Provider: 09/20/18 11:35 Chief Complaint (Nursing): Flu-like Symptoms History Per: Patient History/Exam Limitations: no limitations Onset/Duration Of Symptoms: Other (2-3 weeks ) Current Symptoms Are (Timing): Still Present Associated Symptoms: Fever, Cough, Sputum Past Medical History Reviewed: Historical Data, Nursing Documentation, Vital Signs Vital Signs: Last Vital Signs Temp 98.1 F 09/20/18 13:32 Pulse 93 H 09/20/18 13:32 Resp 24 09/20/18 13:32 BP 140/70 09/20/18 13:32 Pulse Ox 95 09/20/18 13:32 - Medical History PMH: Anxiety, Asthma, Benign Prostatic Hyperplasia, Bipolar Disorder, COPD, Depression, Diabetes, HTN, Hyperlipidemia, Schizophrenia Denies: Hepatitis, HIV, Chronic Kidney Disease, Seizures, Sexually Transmitted Disease Surgical History: Appendectomy, Cholecystectomy - [facility] Procedures ASSISTANCE WITH RESPIRATORY VENTILATION, 24-96 HRS, CPAP (08/18/15) DRAINAGE OF RIGHT MIDDLE LUNG LOBE, ENDO, DIAGN (02/09/17) EXCISION OF RIGHT MIDDLE LUNG LOBE, ENDO, DIAGN (02/09/17) INSERTION OF ENDOTRACHEAL AIRWAY INTO TRACHEA, VIA OPENING (08/18/15) RESPIRATORY VENTILATION, 24-96 CONSECUTIVE HOURS (08/18/15) Family History: States: Unknown Family Hx - Social History Hx Tobacco Use: Yes Hx Alcohol Use: No Hx Substance Use: No - Immunization History Hx Tetanus Toxoid Vaccination: No Hx Influenza Vaccination: Yes Hx Pneumococcal Vaccination: No Review Of Systems Constitutional: Positive for: Fever Respiratory: Positive for: Cough, Sputum Physical Exam - Physical Exam Appears: Non-toxic, No Acute Distress, Other (mildly obese male ) Skin: Normal Color, Warm, Dry, No Rash Head: Atraumatic, Normacephalic Eye(s): bilateral: Normal Inspection Oral Mucosa: Moist Neck: Normal ROM, Supple Chest: Symmetrical, No Deformity, No Tenderness Cardiovascular: Rhythm Regular, No Friction Rub, No Murmur Respiratory: No Rales, Rhonchi (scattered), No Wheezing Gastrointestinal/Abdominal: Soft, No Tenderness Back: Normal Inspection, No CVA Tenderness, No Vertebral Tenderness Extremity: Normal ROM, Capillary Refill (less than 2 seconds ), No Swelling Neurological/Psych: Oriented x3, Normal Speech, Normal Cognition, Normal Motor Gait: Steady ED Course And Treatment - Laboratory Results Result Diagrams: 09/20/18 12:07 09/20/18 12:34 Lab Results: NT-Pro-B Natriuret Pep 52.7 pg/mL (0-900) 09/20/18 12:34 Total Bilirubin 0.4 mg/dL (0.2-1.3) 09/20/18 12:34 AST 36 U/L (17-59) 09/20/18 12:34 ALT 30 U/L (21-72) 09/20/18 12:34 Alkaline Phosphatase 81 U/L (38-126) 09/20/18 12:34 Total Protein 7.9 g/dL (6.3-8.3) 09/20/18 12:34 Albumin 4.2 g/dL (3.5-5.0) 09/20/18 12:34 Globulin 3.6 gm/dL (2.2-3.9) 09/20/18 12:34 Albumin/Globulin Ratio 1.2 (1.0-2.1) 09/20/18 12:34 O2 Sat by Pulse Oximetry: 95 (on RA) Pulse Ox Interpretation: Normal - Other Rad CXR X-Ray: Viewed By Me, Read By Radiologist Interpretation: HISTORY: SOB. COMPARISON: Chest x-ray performed 02/11/17. TECHNIQUE: Chest, one view. FINDINGS: LUNGS: Moderate interstitial prominence may reflect infection or edema. Please note that chest x-ray has limited sensitivity for the detection of pulmonary masses. PLEURA: Lobulated pleural thickening, lateral aspect left lower lobe as on prior imaging. No significant pleural effusion identified. No definite pneumothorax . CARDIOVASCULAR: Cardiomegaly. Atherosclerotic calcifications of the aorta. OSSEOUS STRUCTURES: Degenerative changes. VISUALIZED UPPER ABDOMEN: Unremarkable. OTHER FINDINGS: None. IMPRESSION: Moderate interstitial prominence consistent with edema or infection. Lobulated pleural thickening re- identified involving the lateral aspect of the left lower lobe. Cardiomegaly. Atherosclerotic calcifications. Medical Decision Making Medical Decision Making: Progress: Bloodwork, CXR, and EKG ordered and reviewed. Avelox PO and IV Fluids given. On re-exam, the patient is resting comfortably. Pulse ox is 95% on RA. Lungs are CTA, heart is RRR, abdomen is soft, non-tender and tolerating Po well. Follow up with the medical doctor within 1-2 days. Return if worsened. Disposition - Disposition Referrals: Sergio Lafleur [Staff Provider] - Disposition: HOME/ ROUTINE Disposition Time: 13:30 Condition: FAIR Additional Instructions: Follow up with the medical doctor within 1-2 days without fail. Return if worsened. Prescriptions: Benzonatate 200 mg PO TID PRN #30 capsule PRN Reason: Cough Moxifloxacin [Avelox] 400 mg PO DAILY #9 tab Instructions: Pneumonia, Adult (DC) Forms: [facility] (Russian) - Clinical Impression Clinical Impression: Pneumonia - PA / [employer] / Resident Statement MD/DO has reviewed & agrees with the documentation as recorded. - Scribe Statement The provider has reviewed the documentation as recorded by the Scribe (Ifrah Yoon) All medical record entries made by the Scribe were at my direction and personally dictated by me. I have reviewed the chart and agree that the record accurately reflects my personal performance of the history, physical exam, medical decision making, and the department course for this patient. I have also personally directed, reviewed, and agree with the discharge instructions and disposition.
--- NOTE | 2018-09-20 13:57 | RAD ---
HISTORY: SOB COMPARISON: Chest x-ray performed 02/11/17 TECHNIQUE: Chest, one view. FINDINGS: LUNGS: Moderate interstitial prominence may reflect infection or edema. Please note that chest x-ray has limited sensitivity for the detection of pulmonary masses. PLEURA: Lobulated pleural thickening, lateral aspect left lower lobe as on prior imaging. No significant pleural effusion identified. No definite pneumothorax . CARDIOVASCULAR: Cardiomegaly. Atherosclerotic calcifications of the aorta. OSSEOUS STRUCTURES: Degenerative changes. VISUALIZED UPPER ABDOMEN: Unremarkable. OTHER FINDINGS: None. IMPRESSION: Moderate interstitial prominence consistent with edema or infection. Lobulated pleural thickening re-identified involving the lateral aspect of the left lower lobe. Cardiomegaly. Atherosclerotic calcifications.
--- NOTE | 2018-09-21 20:24 | CARD ---
APPROVED REPORT Date of service: 09/20/2018 EKG Measurement Heart [id number] <Conclusion> Sinus tachycardia Otherwise normal ECG
== END 2018-09-20 14:45 | disposition home or self-care (01) ==
LOC: C.ER 11:20
DX: J18.9 Pneumonia, unspecified organism (principal); I10 Essential (primary) hypertension; F31.9 Bipolar disorder, unspecified; E78.5 Hyperlipidemia, unspecified; E11.9 Type 2 diabetes mellitus without complications; Z72.0 Tobacco use; N40.0 Benign prostatic hyperplasia without lower urinary tract symptoms; J44.0 Chronic obstructive pulmonary disease with (acute) lower respiratory infection; F20.9 Schizophrenia, unspecified
CPT/HCPCS: 71045; 80053; 83880; 85025; 93005; 96360; 99284; J7030